=== PATIENT | female | born 1940 | race Caucasian/White ===

== ENCOUNTER 2016-12-27 13:51 | Inpatient (IN) | payer MEDICARE ==
[~2016-12-27] VITALS: Ht 165.1 cm; Wt 88.0 kg
[~2016-12-27 13:51] MED LIST: ATOR40TA59 PO; ERGO500027 PO; GLIM4TAB2 PO; HYDR-2758 PO; LISI1TAB3 PO; METF-620 PO
--- NOTE | 2016-12-27 15:20 | PHYS DOC ---
Past Medical History Past Medical History: Diabetes-Type II, High Cholesterol, Other Additional Past Medical Histor: OSTEOPOROSIS Past Surgical History: Appendectomy, Cholecystectomy Additional Information: QUIT SMOKING 3 MONTHS AGO Alcohol Use: None Drug Use: None Adult General Chief Complaint Chief Complaint: SHORTNESS OF BREATH HPI HPI Patient is a 76 year old female who presents with shortness of breath. She reports 2 week history of progressively worsening shortness of breath at rest, worsened with exertion. She reports chronic bilateral lower extremity edema not changed & no associated pain. She denies fevers/chills, cough, chest pain. No history of previous similar symptoms. Quit smoking 3 months ago after smoking for 40 years. She took lasix "a long long time ago" for unknown reasons , not currently prescribed. Denies history of cardiac or lung disease but she has diabetes. PCP is Dr. Reddy; she was seen in his clinic today & referred here for further evaluation. Review of Systems Review of Systems Constitutional: Denies fever or chills Eyes: Denies change in visual acuity HENT: Denies nasal congestion or sore throat Respiratory: Denies cough, reports shortness of breath Cardiovascular: Denies chest pain, reports edema GI: Denies abdominal pain, nausea, vomiting, bloody stools or diarrhea : Denies dysuria or hematuria Musculoskeletal: Denies back pain or joint pain Integument: Denies rash or skin lesions Neurologic: Denies headache, focal weakness or sensory changes Allergies Allergies Allergies Coded Allergies Type Severity Reaction Last Updated Verified No Known Drug Allergies 11/05/13 No Physical Exam Physical Exam Constitutional: Obese, no acute distress, non-toxic appearance. HENT: Normocephalic, atraumatic, bilateral external ears normal, oropharynx moist, nose normal. Eyes: PERRLA, EOMI, conjunctiva normal, no discharge. Neck: supple, no stridor. Cardiovascular: RRR, no murmurs, 3+ pitting edema to bilateral lower extremities. Lungs & Thorax: Diminished, LCTAB, no wheezing, no respiratory distress. Abdomen: soft, nontender, nondistended. Skin: Warm, dry, no erythema, no rash. Back: No tenderness. Extremities: No tenderness, 3+ pitting edema to bilateral lower extremities without calf tenderness Neurologic: Alert and oriented X 3, no focal deficits noted. Psychologic: Affect normal, judgement normal, mood normal. Current Patient Data Vital Signs Vital Signs Date Time Temp Pulse Resp B/P (MAP) Pulse Ox O2 Delivery O2 Flow Rate FiO2 12/27/16 15:38 86 18 92/55 (67) 97 Room Air 12/27/16 14:37 97.5 97.5 Lab Values Laboratory Tests Test 12/27/16 14:50 12/27/16 16:22 White Blood Count 9.0 x10^3/uL (4.0-11.0) Red Blood Count 4.20 x10^6/uL (3.50-5.40) Hemoglobin 10.8 g/dL (12.0-15.5) L Hematocrit 35.4 % (36.0-47.0) L Mean Corpuscular Volume 84 fL (79-100) Mean Corpuscular Hemoglobin 26 pg (25-35) Mean Corpuscular Hemoglobin Concent 31 g/dL (31-37) Red Cell Distribution Width 15.9 % (11.5-14.5) H Platelet Count 374 x10^3/uL (140-400) Neutrophils (%) (Auto) 81 % (31-73) H Lymphocytes (%) (Auto) 12 % (24-48) L Monocytes (%) (Auto) 5 % (0-9) Eosinophils (%) (Auto) 1 % (0-3) Basophils (%) (Auto) 1 % (0-3) Neutrophils # (Auto) 7.3 x10^3uL (1.8-7.7) Lymphocytes # (Auto) 1.1 x10^3/uL (1.0-4.8) Monocytes # (Auto) 0.4 x10^3/uL (0.0-1.1) Eosinophils # (Auto) 0.1 x10^3/uL (0.0-0.7) Basophils # (Auto) 0.1 x10^3/uL (0.0-0.2) Prothrombin Time 15.3 SEC (11.7-14.0) H Prothrombin Time INR 1.3 (0.8-1.1) H PTT 29 SEC (24-38) Sodium Level 141 mmol/L (136-145) Potassium Level 5.9 mmol/L (3.5-5.1) H Chloride Level 110 mmol/L (98-107) H Carbon Dioxide Level 21 mmol/L (21-32) Anion Gap 10 (6-14) Blood Urea Nitrogen 47 mg/dL (7-20) H Creatinine 2.3 mg/dL (0.6-1.0) H Estimated GFR (Cockcroft-Gault) 20.7 BUN/Creatinine Ratio 20 (6-20) Glucose Level 199 mg/dL (70-99) H Calcium Level 9.1 mg/dL (8.5-10.1) Total Bilirubin 0.6 mg/dL (0.2-1.0) Aspartate Amino Transferase (AST) 16 U/L (15-37) Alanine Aminotransferase (ALT) 20 U/L (14-59) Alkaline Phosphatase 100 U/L (46-116) Troponin I Quantitative 0.037 ng/mL (0.000-0.055) SK-Nwu-Y-Type Natriuretic Peptide 95437 pg/mL (0-124) H Total Protein 6.0 g/dL (6.4-8.2) L Albumin 3.1 g/dL (3.4-5.0) L Albumin/Globulin Ratio 1.1 (1.0-1.7) Urine Collection Type Void Urine Color Yellow Urine Clarity Cloudy Urine pH 5.0 Urine Specific [place] 1.020 Urine Protein 100 mg/dL (NEG-TRACE) Urine Glucose (UA) Negative mg/dL (NEG) Urine Ketones (Stick) Negative mg/dL (NEG) Urine Blood Small (NEG) Urine Nitrite Negative (NEG) Urine Bilirubin Small (NEG) Urine Urobilinogen Dipstick 0.2 mg/dL (0.2 mg/dL) Urine Leukocyte Esterase Large (NEG) Urine RBC Occ /HPF (0-2) Urine WBC >40 /HPF (0-4) Urine Squamous Epithelial Cells Few /LPF Urine Bacteria Many /HPF (0-FEW) Urine Hyaline Casts Few /HPF Urine Mucus Slight /LPF Laboratory Tests 12/27/16 14:50 Laboratory Tests 12/27/16 14:50 EKG EKG Interpreted by me: Normal sinus rhythm rate 90, no acute ST or T wave changes, normal intervals, no ectopy [] Radiology/Procedures Radiology/Procedures PROCEDURE: CHEST AP ONLY Indication: Shortness of breath. Time of exam 1527 hours. The heart is enlarged. The lungs are clear. No infiltrate or failure is detected. No effusion or pneumothorax is seen. Impression: Cardiomegaly. No acute feature is detected. DICTATED and SIGNED BY: MIGUEL HURT MD DATE: 12/27/16 1559 [] Course & Med Decision Making Course & Med Decision Making Pertinent Labs and Imaging studies reviewed. (See chart for details) The patient presents with dyspnea. Oxygen saturation stable here but obviously dyspneic with very short walk to the restroom in the department. She has peripheral edema, cardiomegaly, significantly elevated BNP. I did recommend admission to the hospital for further evaluation and treatment including cardiology consultation. The patient agreed with plan of care. Discussed with Dr. Reddy who agrees to admit to inpatient status. Cardiology consult to Dr. Severino, lasix 20 mg x 2 given here in ED, will also consult nephrology for acute renal failure & repeat BMP in AM due to elevated K. gave Rocephin for UTI. Urine culture sent. The patient is admitted in stable condition. [] Dragon Disclaimer Dragon Disclaimer This electronic medical record was generated, in whole or in part, using a voice recognition dictation system. Departure Departure Impression: Primary Impression: Congestive heart failure Additional Impressions: Acute renal failure Hyperkalemia Peripheral edema Urinary tract infection Referrals: JUAN JOSÉ REDDY MD (PCP) Problem Qualifiers KRYSTA CALABRESE MD Dec 27, 2016 15:20
[2016-12-27 15:44] LABS: BASO # 0.1 x10^3/uL (0.0-0.2); BASO % 1 % (0-3); EOS % 1 % (0-3); HEMATOCRIT 35.4 % (36.0-47.0); HEMOGLOBIN 10.8 g/dL (12.0-15.5); LYMPH # 1.1 x10^3/uL (1.0-4.8); LYMPH % 12 % (24-48); MEAN CORPUSCULAR HEMOGLOBIN 26 pg (25-35); MEAN CORPUSCULAR HGB CONC 31 g/dL (31-37); MEAN CORPUSCULAR VOLUME 84 fL (79-100); MONO % 5 % (0-9); NEUT % 81 % (31-73); PLATELET COUNT 374 x10^3/uL (140-400); RED CELL DISTRIBUTION WIDTH 15.9 % (11.5-14.5)
[2016-12-27 15:54] LABS: INR 1.3 (0.8-1.1); PROTHROMBIN TIME PATIENT 15.3 SEC (11.7-14.0)
--- NOTE | 2016-12-27 15:54 | RAD ---
Indication: Shortness of breath. Time of exam 1527 hours. The heart is enlarged. The lungs are clear. No infiltrate or failure is detected. No effusion or pneumothorax is seen. Impression: Cardiomegaly. No acute feature is detected.
[2016-12-27 16:00] LABS: CALCIUM 9.1 mg/dL (8.5-10.1); CREATININE 2.3 mg/dL (0.6-1.0); GFR 20.7; POTASSIUM 5.9 mmol/L (3.5-5.1)
[2016-12-27 16:06] LABS: ALBUMIN 3.1 g/dL (3.4-5.0); ALBUMIN/GLOBULIN RATIO 1.1 (1.0-1.7); TOTAL BILIRUBIN 0.6 mg/dL (0.2-1.0)
--- NOTE | 2016-12-27 16:16 | EKG ---
[facility] [address] [place] [address] Test Date: 2016-12-27 Test Time: 15:19:56 Pat Name: GONZALES BAIRD Department: Room: Gender: F [employer] Aircraft: : [id number] Requested By: KRYSTA CALABRESE Order Number: [id number] Reading MD: Barbi Centeno Measurements Intervals [place] Rate: 90 P: 56 RI: 174 QRS: 9 QRSD: 72 T: 144 QT: 342 QTc: 422 Interpretive Statements SINUS RHYTHM QRS(T) CONTOUR ABNORMALITY CANNOT RULE OUT ANTEROSEPTAL MYOCARDIAL DAMAGE T ABNORMALITY IN HIGH LATERAL LEADS Electronically Signed On 12-30-2016 13:48:29 CDT by Barbi Centeno
--- NOTE | 2016-12-27 16:30 | ACF ---
Admission Forms Criteria HEART FAILURE: COMMON COMPLICATIONS Clinical Indications for Inpatient Care (Place 'X' for any and all applicable criteria): Ongoing inpatient care may be indicated for heart failure with 1 or more of the following (1)(2)(3)(4)(5)(6)(7)(8): [ ]I. New-onset heart failure [ ]II. Acute cardiac ischemia causing or associated with failure [ ]III. Ongoing need for care for primary condition requiring frequent therapy adjustments because of changes in cardiac function (eg, drug dosage changes for drugs that are renally metabolized) [X ]IV. Complications of heart failure, including 1 or more of the following: [ ]a) Hemodynamic instability [ ]b) Pericardial effusion [ ]c) Symptomatic pleural effusion [ ]d) Hypoxemia [ ]e) Tachypnea [X ]f) Dyspnea [ ]g) Syncope [ ]h) Altered mental status [ ]i) Acute renal insufficiency that is severe (reduction of more than 50% in estimated glomerular filtration rate from baseline) or progressive reduction of more than 25% in estimated glomerular filtration rate from baseline, with creatinine continuing to rise) [ ]j) Debilitating anasarca (eg tissue breakdown with infection, inability to void due to edema) (E) [ ]k) Clinically significant metabolic abnormalities due to heart failure (eg, new-onset metabolic acidosis) Extended stay may be needed until ALL of the following are present (1)(3)(18)(41 )(55) [ ]a) Hemodynamic stability [ ]b) Stable and effective diuretic regimen established (or patient on stable dialysis regimen if in chronic renal failure) [ ]c) Volume status acceptable on oral medication [ ]d) Breathing comfortably at rest [ ]e) Saturation of arterial oxygen greater than 90% or at acceptable baseline [ ]f) Pulmonary edema absent or improved [ ]g) Peripheral or sacral edema absent or improved [ ]h) Renal function stable and manageable at a lower level of care [ ]i) Complications (eg, pleural effusion) resolved or manageable at a lower level of care [ ]g) Patient or caregiver has received written discharge instructions or educational material addressing activity level, diet, discharge medications, follow-up appointment, weight monitoring, and what to do if symptoms worsen.(25)(26) The original [facility] streamit content created by [facility] [employer] has been revised. The portions of the content which have been revised are identified through the use of italic text, and [facility] has neither reviewed nor approved the modified material.All other unmodified content is copyright [facility]. Please see references footnoted in the original [facility] edition 2015 Admission Criteria Met?: Yes RAVINDRA ROGERS Dec 27, 2016 16:30
[2016-12-27 16:38] LABS: BILIRUBIN,URINE SMALL (NEG); GLUCOSE,URINE NEGATIVE (NEG); NITRITE,URINE NEGATIVE (NEG); PROTEIN,URINE 100 mg/dL (NEG-TRACE); UROBILINOGEN,URINE 0.2 mg/dL (0.2 mg/dL)
[2016-12-27 16:55] LABS: RBC,URINE OCC /HPF (0-2); WBC,URINE >40 /HPF (0-4)
[2016-12-27 16:56] LABS: BACTERIA,URINE MANY /HPF (0-FEW); SQUAMOUS EPITHELIAL CELL,UR FEW /LPF
[2016-12-27] MEDS ORDERED: FUROSEMIDE 20 MG/2 ML VIAL. IVP ONE ×3 (17:15→18:45)
[2016-12-27] MEDS ORDERED: MORPHINE SULFATE 2 MG/ML DISP.SYRIN. IV PRN (17:30)
[2016-12-27] MEDS ORDERED: ONDANSETRON PF 4 MG/2 ML VIAL. IV PRN (17:30)
[2016-12-27] MEDS ORDERED: ACETAMINOPHEN 325 MG TABLET. PO PRN (17:30)
[2016-12-27] MEDS ORDERED: NITROGLYCERIN SUBLINGUAL 0.4 MG BOTTLE OF 25. SL PRN (17:30)
[2016-12-27 18:09] VITALS: BP 97/67
[2016-12-27] MEDS ORDERED: DIGOXIN IV 500 MCG/2 ML AMPUL. IV ONE (18:45)
[2016-12-27 19:15] VITALS: BP 90/52
[2016-12-27] MEDS: INSULIN ASPART 300 UNITS/3 ML INSULN.PEN SQ SCH (22:15)
[2016-12-27] MEDS: ATORVASTATIN CALCIUM 40 MG TABLET. PO SCH (22:26)
[2016-12-27] MEDS: ENOXAPARIN 30 MG/0.3 ML SYRINGE. SQ SCH (23:03)
[2016-12-27 23:20] VITALS: BP 94/52
[2016-12-28] VITALS (7 sets, daily range): BP systolic 93–115; BP diastolic 51–71
[2016-12-28 06:53] LABS: BASO # 0.1 x10^3/uL (0.0-0.2); BASO % 1 % (0-3); EOS % 3 % (0-3); HEMATOCRIT 33.9 % (36.0-47.0); HEMOGLOBIN 10.5 g/dL (12.0-15.5); LYMPH # 1.5 x10^3/uL (1.0-4.8); LYMPH % 19 % (24-48); MEAN CORPUSCULAR HEMOGLOBIN 26 pg (25-35); MEAN CORPUSCULAR HGB CONC 31 g/dL (31-37); MEAN CORPUSCULAR VOLUME 83 fL (79-100); MONO % 8 % (0-9); NEUT % 69 % (31-73); PLATELET COUNT 321 x10^3/uL (140-400); RED BLOOD COUNT 4.11 x10^6/uL (3.50-5.40); RED CELL DISTRIBUTION WIDTH 16.3 % (11.5-14.5); WHITE BLOOD COUNT 7.8 x10^3/uL (4.0-11.0)
[2016-12-28 07:15] LABS: CALCIUM 9.3 mg/dL (8.5-10.1); CREATININE 2.1 mg/dL (0.6-1.0)
[2016-12-28 07:16] LABS: POTASSIUM 5.3 mmol/L (3.5-5.1)
[2016-12-28] MEDS: INSULIN ASPART 300 UNITS/3 ML INSULN.PEN SQ SCH ×4 (07:30→21:40)
[2016-12-28] MEDS: FUROSEMIDE 40 MG/4 ML VIAL. IVP SCH ×2 (09:24→17:48)
--- NOTE | 2016-12-28 10:49 | PDOC2 ---
EZEQUIEL KELLY INSIGHTS ANALYST 12/28/16 1049: CARDIAC CONSULT DATE OF CONSULT Date of Consult DATE: 12/28/16 TIME: 1200 REASON FOR CONSULT Reason for Consult: new CHF REFERRING PHYSICIAN Referring Physician: Jason SOURCE Source: Chart review, Patient HISTORY OF PRESENT ILLNESS HISTORY OF PRESENT ILLNESS This is a pleasant 76 yo female admitted for complains of SOA. She went to her PCP yesterday and was noted with increasing SOA, weight gain and leg swelling. She was then advised to come to ED. Reports that in the last 4 weeks she has gained about 25 lbs. She does have orthopnea, PND. Reports no CP, or sensation of palpitations. No intermittent dizzy spells. Reports adequate hydration, no excessive Na or fluid intake. She actually has quit smoking for 3 months now. Her mobility has been limited due to ELIZALDE. PAST MEDICAL HISTORY Cardiovascular: HTN, Hyperlipidemia, Aortic stenosis (mild), Other (mild PAD) Pulmonary: COPD CENTRAL NERVOUS SYSTEM: Other (No pertinent history) GI: No pertinent hx Heme/Onc: No pertinent hx Hepatobiliary: No pertinent hx Psych: No pertinent hx Musculoskeletal: low back pain, Osteoarthritis, Other (lumbar stenosis) Rheumatologic: No pertinent hx ENT: No pertinent hx Renal/: No pertinent hx Endocrine: Diabetes (2), Osteoporosis Dermatology: No pertinent hx PAST SURGICAL HISTORY Past Surgical History: Appendectomy, Cholecystectomy, Tonsillectomy FAMILY HISTORY Family History: Diabetes (2) SOCIAL HISTORY Smoke: 1 pack per day (>40 yrs) ALCOHOL: none Drugs: None Lives: with Family CURRENT MEDICATIONS CURRENT MEDICATIONS Current Medications Medications (Trade) Dose Ordered Sig/Elida Route PRN Reason Start Time Stop Time Status Last Admin Dose Admin Furosemide (Lasix) 20 mg 1X ONCE IVP 12/27/16 17:15 12/27/16 17:16 DC 12/27/16 17:02 Ceftriaxone Sodium 50 ml @ 100 mls/hr 1X ONCE IV 12/27/16 17:30 12/27/16 17:59 DC 12/27/16 20:37 Digoxin (Lanoxin) 500 mcg 1X ONCE IV 12/27/16 18:45 12/27/16 18:46 DC 12/27/16 22:27 Furosemide (Lasix) 20 mg 1X ONCE IVP 12/27/16 18:45 12/27/16 18:47 DC 12/27/16 20:36 Furosemide (Lasix) 40 mg Q12H IVP 12/28/16 06:00 12/28/16 09:24 Atorvastatin Calcium (Lipitor) 40 mg HS PO 12/27/16 22:15 12/27/16 22:26 Enoxaparin Sodium (Lovenox 30mg Syringe) 30 mg Q24H SQ 12/27/16 22:30 12/27/16 23:03 ALLERGIES ALLERGIES: Coded Allergies: No Known Drug Allergies (Unverified , 11/05/13) ROS Review of System 14 point ROS evaluated with pertinent positives noted per HPI PHYSICAL EXAM General: Alert, Oriented X3, Cooperative, No acute distress HEENT: Atraumatic, Mucous membr. moist/pink Lungs: Other (faint basilar crackles) Heart: Regular rate (SR), Normal S1, Normal S2, Other (2/6 systolic murmur to LLS border) Abdomen: Soft, No tenderness Extremities: No cyanosis, Other (4+ bilateral LE pitting edema) Skin: No breakdown Neuro: Normal speech, Sensation intact Psych/Mental Status: Mental status NL, Mood NL MUSCULOSKELETAL: Osteoarthritic changes both hands VITALS VITALS Vital Signs Date Time Temp Pulse Resp B/P (MAP) Pulse Ox O2 Delivery O2 Flow Rate FiO2 12/28/16 10:33 97.2 116 20 108/67 (81) 95 Room Air 97.2 LABS Lab: Laboratory Tests Test 12/27/16 14:50 12/27/16 16:22 12/27/16 20:58 12/27/16 22:00 White Blood Count 9.0 x10^3/uL (4.0-11.0) Red Blood Count 4.20 x10^6/uL (3.50-5.40) Hemoglobin 10.8 g/dL (12.0-15.5) Hematocrit 35.4 % (36.0-47.0) Mean Corpuscular Volume 84 fL (79-100) Mean Corpuscular Hemoglobin 26 pg (25-35) Mean Corpuscular Hemoglobin Concent 31 g/dL (31-37) Red Cell Distribution Width 15.9 % (11.5-14.5) Platelet Count 374 x10^3/uL (140-400) Neutrophils (%) (Auto) 81 % (31-73) Lymphocytes (%) (Auto) 12 % (24-48) Monocytes (%) (Auto) 5 % (0-9) Eosinophils (%) (Auto) 1 % (0-3) Basophils (%) (Auto) 1 % (0-3) Neutrophils # (Auto) 7.3 x10^3uL (1.8-7.7) Lymphocytes # (Auto) 1.1 x10^3/uL (1.0-4.8) Monocytes # (Auto) 0.4 x10^3/uL (0.0-1.1) Eosinophils # (Auto) 0.1 x10^3/uL (0.0-0.7) Basophils # (Auto) 0.1 x10^3/uL (0.0-0.2) Prothrombin Time 15.3 SEC (11.7-14.0) Prothromb Time International Ratio 1.3 (0.8-1.1) Activated Partial Thromboplast Time 29 SEC (24-38) Sodium Level 141 mmol/L (136-145) Potassium Level 5.9 mmol/L (3.5-5.1) 5.1 mmol/L (3.5-5.1) Chloride Level 110 mmol/L (98-107) Carbon Dioxide Level 21 mmol/L (21-32) Anion Gap 10 (6-14) Blood Urea Nitrogen 47 mg/dL (7-20) Creatinine 2.3 mg/dL (0.6-1.0) Estimated GFR (Cockcroft-Gault) 20.7 BUN/Creatinine Ratio 20 (6-20) Glucose Level 199 mg/dL (70-99) Calcium Level 9.1 mg/dL (8.5-10.1) Total Bilirubin 0.6 mg/dL (0.2-1.0) Aspartate Amino Transf (AST/SGOT) 16 U/L (15-37) Alanine Aminotransferase (ALT/SGPT) 20 U/L (14-59) Alkaline Phosphatase 100 U/L (46-116) Troponin I Quantitative 0.037 ng/mL (0.000-0.055) GA-Nlv-N-Type Natriuretic Peptide 21029 pg/mL (0-124) Total Protein 6.0 g/dL (6.4-8.2) Albumin 3.1 g/dL (3.4-5.0) Albumin/Globulin Ratio 1.1 (1.0-1.7) Urine Collection Type Void Urine Color Yellow Urine Clarity Cloudy Urine pH 5.0 Urine Specific [place] 1.020 Urine Protein 100 mg/dL (NEG-TRACE) Urine Glucose (UA) Negative mg/dL (NEG) Urine Ketones (Stick) Negative mg/dL (NEG) Urine Blood Small (NEG) Urine Nitrite Negative (NEG) Urine Bilirubin Small (NEG) Urine Urobilinogen Dipstick 0.2 mg/dL (0.2 mg/dL) Urine Leukocyte Esterase Large (NEG) Urine RBC Occ /HPF (0-2) Urine WBC >40 /HPF (0-4) Urine Squamous Epithelial Cells Few /LPF Urine Bacteria Many /HPF (0-FEW) Urine Hyaline Casts Few /HPF Urine Mucus Slight /LPF Glucose (Fingerstick) 179 mg/dL (70-99) Test 12/27/16 23:20 12/28/16 06:00 Troponin I Quantitative 0.041 ng/mL (0.000-0.055) 0.052 ng/mL (0.000-0.055) White Blood Count 7.8 x10^3/uL (4.0-11.0) Red Blood Count 4.11 x10^6/uL (3.50-5.40) Hemoglobin 10.5 g/dL (12.0-15.5) Hematocrit 33.9 % (36.0-47.0) Mean Corpuscular Volume 83 fL (79-100) Mean Corpuscular Hemoglobin 26 pg (25-35) Mean Corpuscular Hemoglobin Concent 31 g/dL (31-37) Red Cell Distribution Width 16.3 % (11.5-14.5) Platelet Count 321 x10^3/uL (140-400) Neutrophils (%) (Auto) 69 % (31-73) Lymphocytes (%) (Auto) 19 % (24-48) Monocytes (%) (Auto) 8 % (0-9) Eosinophils (%) (Auto) 3 % (0-3) Basophils (%) (Auto) 1 % (0-3) Neutrophils # (Auto) 5.4 x10^3uL (1.8-7.7) Lymphocytes # (Auto) 1.5 x10^3/uL (1.0-4.8) Monocytes # (Auto) 0.6 x10^3/uL (0.0-1.1) Eosinophils # (Auto) 0.2 x10^3/uL (0.0-0.7) Basophils # (Auto) 0.1 x10^3/uL (0.0-0.2) Sodium Level 142 mmol/L (136-145) Potassium Level 5.3 mmol/L (3.5-5.1) Chloride Level 109 mmol/L (98-107) Carbon Dioxide Level 21 mmol/L (21-32) Anion Gap 12 (6-14) Blood Urea Nitrogen 47 mg/dL (7-20) Creatinine 2.1 mg/dL (0.6-1.0) Estimated GFR (Cockcroft-Gault) 23.0 Glucose Level 115 mg/dL (70-99) Calcium Level 9.3 mg/dL (8.5-10.1) ECHOCARDIOGRAM ECHOCARDIOGRAM <Conclusion> The left ventricle is normal size. The left ventricular systolic function is normal and the ejection fraction is within normal range. The Ejection Fraction is 50-55%. There is mild valvular aortic stenosis. Calculated aortic maximum pressure gradient of 15 mmHg and mean pressure gradient of 8 mmHg. Doppler and Color Flow revealed mild aortic regurgitation. Doppler and Color Flow revealed trace mitral regurgitation. Doppler and Color Flow revealed trace tricuspid regurgitation. The PA pressure was estimated at 24 mmHg. There is no evidence of significant pericardial effusion. DATE: 07/29/15 1256 ASSESSMENT/PLAN ASSESSMENT/PLAN 1. PAflutter: Noted overnight. Currently SR 2. Acute diastolic CHF 3. SEVERINO with hyperkalemia: Defer to nephrology 4. HTN: controlled 5. DM2/HLP 6. COPD with tobaccoism: Quit 3 months ago 7. Morbid obesity 8. UTI: per PCP Recommendations 1. Start on metoprolol 25 mg po bid. 2. Hold ACEi/ARB/metformin 3. ECASA 325 mg for stroke prevention. Will plan for outpt event monitor and note burden and will reeval for NOAC use. 4. Continue to diurese with lasix. 5. TTE pending. TSH to check. Problems: YAHAIRA SANTOS MD 12/28/162031: CARDIAC CONSULT ALLERGIES ALLERGIES: Coded Allergies: No Known Drug Allergies (Unverified , 11/05/13) ASSESSMENT/PLAN ASSESSMENT/PLAN Pt. seen and examined. Agree with above STARCH MANGLE TENDER note. 76 y.o woman presenting with acute decompensated systolic and diastolic HF. On exam she has 4+ pitting edema. Labs reviewed. Echo with severe LV dysfunction. Will plan for cardiac cath on sunday after stabilization. If she is at high risk for GWEN, could consider MPI first. Will follow along. High complexity patient due to acute systolic HF. Problems: EZEQUIEL KELLY APRN Dec 28, 2016 10:49 YAHAIRA SANTOS MD Dec 28, 2016 20:32
--- NOTE | 2016-12-28 12:32 | RAD ---
V/Q lung scan History: Shortness of breath for 2 weeks Comparison: No previous lung scan available. Chest x-ray dated December 27, 2016. Technique: After inhalation of 18.8 mCi of xenon 133, anterior and posterior images of the lung hall were performed in the single breath, equilibrium and washout phases. After IV infusion of 6.0 mCi of technetium 99m MAA, multiplanar images of both lung hall were performed. Findings: No ventilatory defect is seen. No significant retention of radiotracer activity is seen. Normal physiologic perfusion is seen. No segmental perfusion defects are seen. IMPRESSION: Normal V/Q lung scan.
--- NOTE | 2016-12-28 12:39 | PDOC2 ---
CONSULT Date of Consult Date of Consult DATE: 12/28/16 TIME: 12:34 Reason for Consult Reason for Consult: RENAL FAILURE AND HIGH K Referring Physician Referring Physician: BRITTON Identification/Chief Complaint Chief Complaint SOB Problems: Source Source: Chart review, Patient History of Present Illness Reason for Visit: THIS IS A 76 YR OLD ADMITTED WITH SOB AND LE EDEMA. XRAY SHOWED CM. LABS SHOWED A HIGH BNP AND A K OF 5.9. HER CR IS 2.3. SHE IS UNAWARE OF ANY CKD. SHE DENIED ANY HX OF KIDNEY OR BLADDER SURGERIES HEMATURIA DYSURIA OR FREQUENCY. NO NSAID ABUSE HX NOTED. SHE HAS A LONG HX OF DM II AND HTN Past Medical History Cardiovascular: HTN, Hyperlipidemia, Aortic stenosis (mild), Other (mild PAD) Pulmonary: COPD CENTRAL NERVOUS SYSTEM: Other (No pertinent history) GI: No pertinent hx Heme/Onc: No pertinent hx Hepatobiliary: No pertinent hx Psych: No pertinent hx Musculoskeletal: low back pain, Osteoarthritis, Other (lumbar stenosis) Rheumatologic: No pertinent hx ENT: No pertinent hx Renal/: No pertinent hx Endocrine: Diabetes (2), Osteoporosis Dermatology: No pertinent hx Past Surgical History Past Surgical History: Appendectomy, Cholecystectomy, Tonsillectomy Family History Family History: Diabetes (2) Social History 1 pack per day (>40 yrs) ALCOHOL: none Drugs: None Lives: with Family Current Problem List Problem List Problems Medical Problems: (1) Acute renal failure Status: Acute (2) Congestive heart failure Status: Acute (3) Hyperkalemia Status: Acute (4) Peripheral edema Status: Acute (5) Urinary tract infection Status: Acute Current Medications Current Medications Current Medications Furosemide (Lasix) 20 mg 1X ONCE IVP Last administered on 12/27/16 17:02; Start 12/27/16 at 17:15; Stop 12/27/16 at 17:16; Status DC Ceftriaxone Sodium 50 ml @ 100 mls/hr 1X ONCE IV Last administered on 20:37; Start 12/27/16 at 17:30; Stop 12/27/16 at 17:59; Status DC Ondansetron HCl (Zofran) 4 mg PRN Q8HRS PRN IV NAUSEA/VOMITING; Start 12/27/16 at 17:30; Stop 12/28/16 at 17:29 Morphine Sulfate 2 mg PRN Q2HR PRN IV PAIN; Start 12/27/16 at 17:30; Stop 12/28 at 17:29 Acetaminophen (Tylenol) 650 mg PRN Q4HRS PRN PO FEVER; Start 12/27/16 at 17:30 ; Stop 12/28/16 at 17:29 Nitroglycerin (Nitrostat) 0.4 mg PRN Q5MIN PRN SL CHEST PAIN; Start 12/27/16 at 17:30; Stop 12/28/16 at 17:29 Furosemide (Lasix) 20 mg 1X ONCE IVP ; Start 12/27/16 at 17:30; Stop 12/27/16 at 17:31; Status DC Digoxin (Lanoxin) 500 mcg 1X ONCE IV Last administered on 12/27/16 22:27; Start 12/27/16 at 18:45; Stop 12/27/16 at 18:46; Status DC Furosemide (Lasix) 20 mg 1X ONCE IVP Last administered on 12/27/16 20:36; Start 12/27/16 at 18:45; Stop 12/27/16 at 18:47; Status DC Furosemide (Lasix) 40 mg Q12H IVP Last administered on 12/28/16 09:24; Start 12/28/16 at 06:00 Atorvastatin Calcium (Lipitor) 40 mg HS PO Last administered on 12/27/16 22:26 ; Start 12/27/16 at 22:15 Insulin Aspart (NovoLOG) 0-12 UNITS QIDACHS SQ ; Start 12/27/16 at 22:15 Enoxaparin Sodium (Lovenox 30mg Syringe) 30 mg Q24H SQ Last administered on 23:03; Start 12/27/16 at 22:30 Metoprolol Tartrate (Lopressor) 25 mg BID PO ; Start 12/28/16 at 11:30 Aspirin (Ecotrin) 325 mg DAILYWBKFT PO ; Start 12/28/16 at 13:00 Active Scripts Active Hydrocodone-Apap 5-325 (Hydrocodone Bit/Acetaminophen) 1 Each Tablet 1 Tab PO PRN Q6HRS PRN Reported Vitamin D2 (Ergocalciferol (Vitamin D2)) 50,000 Unit Capsule 50,000 Unit PO WEEKLY Metformin Hcl 1,000 Mg Tablet 1,000 Mg PO DAILY Atorvastatin Calcium 40 Mg Tablet 40 Mg PO DAILY Glimepiride 4 Mg Tablet 8 Mg PO DAILY Lisinopril-Hctz 10-12.5 Mg Tab (Lisinopril/Hydrochlorothiazide) 1 Each Tablet 1 Each PO DAILY Hydrocodone-Apap 5-325 (Hydrocodone Bit/Acetaminophen) 1 Each Tablet 1 Each PO Q4HRS PRN Allergies Allergies: Coded Allergies: No Known Drug Allergies (Unverified , 11/05/13) ROS General: YES: Fatigue, Malaise PSYCHOLOGICAL ROS: YES: Anxiety HEENT: YES: Heacaches Respiratory: YES: Orthopnea, Shortness of breath Cardiovascular: yes Orthopnea, yes Edema Gastrointestinal: Yes Constipation Genitourinary: YES Other (NOCTURIA) Musculoskeletal: Yes Muscular Weakness Neurological: Yes Weakness Skin: Yes Dry Skin Physical Exam General: Alert, Oriented X3, Cooperative, No acute distress HEENT: Atraumatic, PERRLA Lungs: Other (DECREASED SOUNDS AT THE BASES) Heart: Regular rate Abdomen: Normal bowel sounds Extremities: No clubbing, Other (2+ EDEMA) MUSCULOSKELETAL: No deformity, No swelling Vitals VITALS Vital Signs Date Time Temp Pulse Resp B/P (MAP) Pulse Ox O2 Delivery O2 Flow Rate FiO2 12/28/16 10:33 97.2 116 20 108/67 (81) 95 Room Air 97.2 Labs Labs Laboratory Tests Test 12/27/16 14:50 12/27/16 16:22 12/27/16 20:58 12/27/16 22:00 White Blood Count 9.0 x10^3/uL (4.0-11.0) Red Blood Count 4.20 x10^6/uL (3.50-5.40) Hemoglobin 10.8 g/dL (12.0-15.5) Hematocrit 35.4 % (36.0-47.0) Mean Corpuscular Volume 84 fL (79-100) Mean Corpuscular Hemoglobin 26 pg (25-35) Mean Corpuscular Hemoglobin Concent 31 g/dL (31-37) Red Cell Distribution Width 15.9 % (11.5-14.5) Platelet Count 374 x10^3/uL (140-400) Neutrophils (%) (Auto) 81 % (31-73) Lymphocytes (%) (Auto) 12 % (24-48) Monocytes (%) (Auto) 5 % (0-9) Eosinophils (%) (Auto) 1 % (0-3) Basophils (%) (Auto) 1 % (0-3) Neutrophils # (Auto) 7.3 x10^3uL (1.8-7.7) Lymphocytes # (Auto) 1.1 x10^3/uL (1.0-4.8) Monocytes # (Auto) 0.4 x10^3/uL (0.0-1.1) Eosinophils # (Auto) 0.1 x10^3/uL (0.0-0.7) Basophils # (Auto) 0.1 x10^3/uL (0.0-0.2) Prothrombin Time 15.3 SEC (11.7-14.0) Prothromb Time International Ratio 1.3 (0.8-1.1) Activated Partial Thromboplast Time 29 SEC (24-38) Sodium Level 141 mmol/L (136-145) Potassium Level 5.9 mmol/L (3.5-5.1) 5.1 mmol/L (3.5-5.1) Chloride Level 110 mmol/L (98-107) Carbon Dioxide Level 21 mmol/L (21-32) Anion Gap 10 (6-14) Blood Urea Nitrogen 47 mg/dL (7-20) Creatinine 2.3 mg/dL (0.6-1.0) Estimated GFR (Cockcroft-Gault) 20.7 BUN/Creatinine Ratio 20 (6-20) Glucose Level 199 mg/dL (70-99) Calcium Level 9.1 mg/dL (8.5-10.1) Total Bilirubin 0.6 mg/dL (0.2-1.0) Aspartate Amino Transf (AST/SGOT) 16 U/L (15-37) Alanine Aminotransferase (ALT/SGPT) 20 U/L (14-59) Alkaline Phosphatase 100 U/L (46-116) Troponin I Quantitative 0.037 ng/mL (0.000-0.055) GS-Ney-F-Type Natriuretic Peptide 39677 pg/mL (0-124) Total Protein 6.0 g/dL (6.4-8.2) Albumin 3.1 g/dL (3.4-5.0) Albumin/Globulin Ratio 1.1 (1.0-1.7) Urine Collection Type Void Urine Color Yellow Urine Clarity Cloudy Urine pH 5.0 Urine Specific Goodrich 1.020 Urine Protein 100 mg/dL (NEG-TRACE) Urine Glucose (UA) Negative mg/dL (NEG) Urine Ketones (Stick) Negative mg/dL (NEG) Urine Blood Small (NEG) Urine Nitrite Negative (NEG) Urine Bilirubin Small (NEG) Urine Urobilinogen Dipstick 0.2 mg/dL (0.2 mg/dL) Urine Leukocyte Esterase Large (NEG) Urine RBC Occ /HPF (0-2) Urine WBC >40 /HPF (0-4) Urine Squamous Epithelial Cells Few /LPF Urine Bacteria Many /HPF (0-FEW) Urine Hyaline Casts Few /HPF Urine Mucus Slight /LPF Glucose (Fingerstick) 179 mg/dL (70-99) Test 12/27/16 23:20 12/28/16 06:00 Troponin I Quantitative 0.041 ng/mL (0.000-0.055) 0.052 ng/mL (0.000-0.055) White Blood Count 7.8 x10^3/uL (4.0-11.0) Red Blood Count 4.11 x10^6/uL (3.50-5.40) Hemoglobin 10.5 g/dL (12.0-15.5) Hematocrit 33.9 % (36.0-47.0) Mean Corpuscular Volume 83 fL (79-100) Mean Corpuscular Hemoglobin 26 pg (25-35) Mean Corpuscular Hemoglobin Concent 31 g/dL (31-37) Red Cell Distribution Width 16.3 % (11.5-14.5) Platelet Count 321 x10^3/uL (140-400) Neutrophils (%) (Auto) 69 % (31-73) Lymphocytes (%) (Auto) 19 % (24-48) Monocytes (%) (Auto) 8 % (0-9) Eosinophils (%) (Auto) 3 % (0-3) Basophils (%) (Auto) 1 % (0-3) Neutrophils # (Auto) 5.4 x10^3uL (1.8-7.7) Lymphocytes # (Auto) 1.5 x10^3/uL (1.0-4.8) Monocytes # (Auto) 0.6 x10^3/uL (0.0-1.1) Eosinophils # (Auto) 0.2 x10^3/uL (0.0-0.7) Basophils # (Auto) 0.1 x10^3/uL (0.0-0.2) Sodium Level 142 mmol/L (136-145) Potassium Level 5.3 mmol/L (3.5-5.1) Chloride Level 109 mmol/L (98-107) Carbon Dioxide Level 21 mmol/L (21-32) Anion Gap 12 (6-14) Blood Urea Nitrogen 47 mg/dL (7-20) Creatinine 2.1 mg/dL (0.6-1.0) Estimated GFR (Cockcroft-Gault) 23.0 Glucose Level 115 mg/dL (70-99) Calcium Level 9.3 mg/dL (8.5-10.1) Laboratory Tests Test 12/27/16 14:50 12/27/16 16:22 12/27/16 20:58 12/27/16 22:00 White Blood Count 9.0 x10^3/uL (4.0-11.0) Red Blood Count 4.20 x10^6/uL (3.50-5.40) Hemoglobin 10.8 g/dL (12.0-15.5) Hematocrit 35.4 % (36.0-47.0) Mean Corpuscular Volume 84 fL (79-100) Mean Corpuscular Hemoglobin 26 pg (25-35) Mean Corpuscular Hemoglobin Concent 31 g/dL (31-37) Red Cell Distribution Width 15.9 % (11.5-14.5) Platelet Count 374 x10^3/uL (140-400) Neutrophils (%) (Auto) 81 % (31-73) Lymphocytes (%) (Auto) 12 % (24-48) Monocytes (%) (Auto) 5 % (0-9) Eosinophils (%) (Auto) 1 % (0-3) Basophils (%) (Auto) 1 % (0-3) Neutrophils # (Auto) 7.3 x10^3uL (1.8-7.7) Lymphocytes # (Auto) 1.1 x10^3/uL (1.0-4.8) Monocytes # (Auto) 0.4 x10^3/uL (0.0-1.1) Eosinophils # (Auto) 0.1 x10^3/uL (0.0-0.7) Basophils # (Auto) 0.1 x10^3/uL (0.0-0.2) Prothrombin Time 15.3 SEC (11.7-14.0) Prothromb Time International Ratio 1.3 (0.8-1.1) Activated Partial Thromboplast Time 29 SEC (24-38) Sodium Level 141 mmol/L (136-145) Potassium Level 5.9 mmol/L (3.5-5.1) 5.1 mmol/L (3.5-5.1) Chloride Level 110 mmol/L (98-107) Carbon Dioxide Level 21 mmol/L (21-32) Anion Gap 10 (6-14) Blood Urea Nitrogen 47 mg/dL (7-20) Creatinine 2.3 mg/dL (0.6-1.0) Estimated GFR (Cockcroft-Gault) 20.7 BUN/Creatinine Ratio 20 (6-20) Glucose Level 199 mg/dL (70-99) Calcium Level 9.1 mg/dL (8.5-10.1) Total Bilirubin 0.6 mg/dL (0.2-1.0) Aspartate Amino Transf (AST/SGOT) 16 U/L (15-37) Alanine Aminotransferase (ALT/SGPT) 20 U/L (14-59) Alkaline Phosphatase 100 U/L (46-116) Troponin I Quantitative 0.037 ng/mL (0.000-0.055) NW-Bpl-O-Type Natriuretic Peptide 35886 pg/mL (0-124) Total Protein 6.0 g/dL (6.4-8.2) Albumin 3.1 g/dL (3.4-5.0) Albumin/Globulin Ratio 1.1 (1.0-1.7) Urine Collection Type Void Urine Color Yellow Urine Clarity Cloudy Urine pH 5.0 Urine Specific Goodrich 1.020 Urine Protein 100 mg/dL (NEG-TRACE) Urine Glucose (UA) Negative mg/dL (NEG) Urine Ketones (Stick) Negative mg/dL (NEG) Urine Blood Small (NEG) Urine Nitrite Negative (NEG) Urine Bilirubin Small (NEG) Urine Urobilinogen Dipstick 0.2 mg/dL (0.2 mg/dL) Urine Leukocyte Esterase Large (NEG) Urine RBC Occ /HPF (0-2) Urine WBC >40 /HPF (0-4) Urine Squamous Epithelial Cells Few /LPF Urine Bacteria Many /HPF (0-FEW) Urine Hyaline Casts Few /HPF Urine Mucus Slight /LPF Glucose (Fingerstick) 179 mg/dL (70-99) Test 12/27/16 23:20 12/28/16 06:00 Troponin I Quantitative 0.041 ng/mL (0.000-0.055) 0.052 ng/mL (0.000-0.055) White Blood Count 7.8 x10^3/uL (4.0-11.0) Red Blood Count 4.11 x10^6/uL (3.50-5.40) Hemoglobin 10.5 g/dL (12.0-15.5) Hematocrit 33.9 % (36.0-47.0) Mean Corpuscular Volume 83 fL (79-100) Mean Corpuscular Hemoglobin 26 pg (25-35) Mean Corpuscular Hemoglobin Concent 31 g/dL (31-37) Red Cell Distribution Width 16.3 % (11.5-14.5) Platelet Count 321 x10^3/uL (140-400) Neutrophils (%) (Auto) 69 % (31-73) Lymphocytes (%) (Auto) 19 % (24-48) Monocytes (%) (Auto) 8 % (0-9) Eosinophils (%) (Auto) 3 % (0-3) Basophils (%) (Auto) 1 % (0-3) Neutrophils # (Auto) 5.4 x10^3uL (1.8-7.7) Lymphocytes # (Auto) 1.5 x10^3/uL (1.0-4.8) Monocytes # (Auto) 0.6 x10^3/uL (0.0-1.1) Eosinophils # (Auto) 0.2 x10^3/uL (0.0-0.7) Basophils # (Auto) 0.1 x10^3/uL (0.0-0.2) Sodium Level 142 mmol/L (136-145) Potassium Level 5.3 mmol/L (3.5-5.1) Chloride Level 109 mmol/L (98-107) Carbon Dioxide Level 21 mmol/L (21-32) Anion Gap 12 (6-14) Blood Urea Nitrogen 47 mg/dL (7-20) Creatinine 2.1 mg/dL (0.6-1.0) Estimated GFR (Cockcroft-Gault) 23.0 Glucose Level 115 mg/dL (70-99) Calcium Level 9.3 mg/dL (8.5-10.1) Assessment/Plan Assessment/Plan IMP CHF-ACUTE EDEMA/HYPERVOLEMIA HYPERKALEMIA SUSPECT CKD STAGE 3 DM II HTN PLAN IV LASIX RENAL SONOGRAM CARDIOLOGY EVAL AND TX AGREE WITH HOLDING CHANDRAKANT AND HCTZ FOR NOW ALSO AGREE WITH HOLDING METFORMIN CHECK 24 HR URINE KEVEN COE MD Dec 28, 2016 12:39
--- NOTE | 2016-12-28 14:48 | RAD ---
Indication: Renal failure. The right kidney measures 10.7 x 5.1 x 4.4 cm and the left kidney measures 10.0 x 4.1 x 4.7 cm. There may be mild cortical thinning. No calculi are seen. No hydronephrosis is detected. The bladder is unremarkable. Impression: Mild cortical thinning. The study is otherwise unremarkable.
--- NOTE | 2016-12-28 16:06 | CARD ---
APPROVED REPORT EXAM: Two-dimensional and M-mode echocardiogram with Doppler and color Doppler. Other Information Quality : Average Rhythm : Tachycardia INDICATION Congestive Heart Failure 2D DIMENSIONS RVDd4.3 (2.9-3.5cm)Left Atrium(2D)4.7 (1.6-4.0cm) IVSd0.9 (0.7-1.1cm)Aortic Root(2D)2.9 (2.0-3.7cm) LVDd5.1 (3.9-5.9cm)LVOT Diameter2.1 (1.8-2.4cm) PWd0.9 (0.7-1.1cm)LVDs4.4 (2.5-4.0cm) FS (%) 13.7 %SV35.5 ml LVEF(%)29.1 (>50%) Aortic Valve AoV Peak Samir.154.0cm/sAoV VTI28.4cm AO Peak GR.9.5mmHgLVOT Peak Samir.121.3cm/s LVOT VTI 19.42cmAO Mean GR.6mmHg CHANDNI (VMAX)2.52vz4GLN (VTI)2.28cm2 AI P 1/2 Kyww175pf Mitral Valve MV E Fmpszqvp07.0cm/sMV DECEL QBCE312mm MV A Zpumfgzt32.0cm/sMV HYR28oi E/A Ratio1.9MVA (PHT)4.35cm2 TDI E/Lateral E'7.5 Pulmonary Valve PV Peak Vnfgremo07.0cm/sPV Peak Grad.3mmHg RVOT VTI12.3cm Tricuspid Valve TR P. Pglrlflc846rk/sRAP NAACGFPN29gdTp TR Peak Gr.21klYiDRPG10woDc Pulmonary Vein S1 Bavbhrcj99.4cm/sD2 Wiblxrbx28.1cm/s LEFT VENTRICLE The left ventricle is normal size. There is normal left ventricular wall thickness. Left ventricle sy stolic function is moderately impaired. The Ejection Fraction is 25-30%. Severe global hypokinesis. T issue Doppler imaging reveals moderate left ventricular diastolic dysfunction. There is no ventricula r septal defect visualized. RIGHT VENTRICLE The right ventricle is moderately dilated. RF Systolic function is mildly reduced. ATRIA The left atrium is mildly dilated. The right atrium is mildly dilated. The interatrial septum is inta ct with no evidence for an atrial septal defect or patent foramen ovale as noted on 2-D or Doppler im aging. AORTIC VALVE The aortic valve is moderately calcified. The aortic valve is trileaflet. Doppler and Color Flow reve aled mild aortic regurgitation. There is no significant aortic valvular stenosis. MITRAL VALVE Mitral annular calcification is mild. There is no mitral valve stenosis. Doppler and Color Flow revea led mild mitral regurgitation. TRICUSPID VALVE The tricuspid valve is normal in structure. Doppler and Color Flow revealed moderate tricuspid regurg itation. The PA pressure was estimated at 60 mmHg. There is no tricuspid valve stenosis. PULMONIC VALVE The pulmonic valve is not well visualized. Doppler and Color Flow revealed trace pulmonic valvular re gurgitation. There is no pulmonic valvular stenosis. GREAT VESSELS The aortic root is normal in size. Pulmonary venous flow (Doppler) suggestive of diastolic dysfunctio n. The IVC is dilated and collapses <50% with inspiration. PERICARDIAL EFFUSION There is no evidence of significant pericardial effusion. Critical Notification Date: 12/28/2016 Time: 15:07 Other Discipline : Jarrett Henry APRN Critical Value: Yes <Conclusion> Left ventricle systolic function is moderately impaired. The Ejection Fraction is 25-30%. Severe global hypokinesis. Tissue Doppler imaging reveals moderate left ventricular diastolic dysfunction. The right ventricle is moderately dilated. Doppler and Color Flow revealed moderate tricuspid regurgitation. The PA pressure was estimated at 6 0 mmHg.
[2016-12-28] MEDS: ASPIRIN ENTERIC COATED 325 MG TABLET.DR. PO SCH (16:34)
[2016-12-28] MEDS: METOPROLOL TART IMMED RELEASE 25 MG TABLET. PO SCH (16:34)
--- NOTE | 2016-12-28 18:02 | PDOC1 ---
History and Physical Date of Admission Date of Admission DATE: 12/27/16 TIME: 1400 hrs. Identification/Chief Complaint Chief Complaint Shortness of breath Problems: Source Source: Patient History of Present Illness History of Present Illness Patient was seen with a 3 week history of increasing shortness of breath. Patient was initially treated for exacerbation of COPD but had little improvement. Patient followed up and was noted to have increasing shortness of breath decreased ability to walk and increasing leg swelling. Reviewing patient' s weight over the last 2 months she has gained 35 pounds and 10 pounds in the last 3 weeks patient is noted to have pitting edema to lower extremities. Due to these findings on office evaluation she was recommended to proceed to the emergency room for further evaluation. During ER evaluation patient was found to have increasing BUN/creatinine high BNP and cardiomegaly on chest x-ray without overt pulmonary edema. Due to these findings patient was admitted for diastolic congestive heart failure as well as acute on chronic renal failure nephrology and cardiology will both be consult. Past Medical History Past Medical History Hypertension Diabetes type 2 Peripheral vascular disease High cholesterol Gout Osteoarthritis Cardiovascular: HTN, Hyperlipidemia, Aortic stenosis (mild), Other (mild PAD) Pulmonary: COPD CENTRAL NERVOUS SYSTEM: Other (No pertinent history) GI: No pertinent hx Heme/Onc: No pertinent hx Hepatobiliary: No pertinent hx Psych: No pertinent hx Musculoskeletal: low back pain, Osteoarthritis, Other (lumbar stenosis) Rheumatologic: No pertinent hx ENT: No pertinent hx Renal/: No pertinent hx Endocrine: Diabetes (2), Osteoporosis Dermatology: No pertinent hx Past Surgical History Past Surgical History: Appendectomy, Cholecystectomy, Tonsillectomy Family History Family History Mother with complications of lung cancer. Patient has a sister with diabetes. Family History: Diabetes (2) Social History Smoke: Quit (>40 yrs patient quit 3 months ago.) ALCOHOL: none Drugs: None Current Problem List Problem List Problems Medical Problems: (1) Acute renal failure Status: Acute (2) Congestive heart failure Status: Acute (3) Hyperkalemia Status: Acute (4) Peripheral edema Status: Acute (5) Urinary tract infection Status: Acute Problems: Current Medications Current Medications Current Medications Furosemide (Lasix) 20 mg 1X ONCE IVP Last administered on 12/27/16t 17:02; Start 12/27/16 at 17:15; Stop 12/27/16 at 17:16; Status DC Ceftriaxone Sodium 50 ml @ 100 mls/hr 1X ONCE IV Last administered on 20:37; Start 12/27/16 at 17:30; Stop 12/27/16 at 17:59; Status DC Ondansetron HCl (Zofran) 4 mg PRN Q8HRS PRN IV NAUSEA/VOMITING; Start 12/27/16 at 17:30; Stop 12/28/16 at 17:29; Status DC Morphine Sulfate 2 mg PRN Q2HR PRN IV PAIN; Start 12/27/16 at 17:30; Stop 12/28 at 17:29; Status DC Acetaminophen (Tylenol) 650 mg PRN Q4HRS PRN PO FEVER; Start 12/27/16 at 17:30 ; Stop 12/28/16 at 17:29; Status DC Nitroglycerin (Nitrostat) 0.4 mg PRN Q5MIN PRN SL CHEST PAIN; Start 12/27/16 at 17:30; Stop 12/28/16 at 17:29; Status DC Furosemide (Lasix) 20 mg 1X ONCE IVP ; Start 12/27/16 at 17:30; Stop 12/27/16 at 17:31; Status DC Digoxin (Lanoxin) 500 mcg 1X ONCE IV Last administered on 12/27/16 22:27; Start 12/27/16 at 18:45; Stop 12/27/16 at 18:46; Status DC Furosemide (Lasix) 20 mg 1X ONCE IVP Last administered on 12/27/16 20:36; Start 12/27/16 at 18:45; Stop 12/27/16 at 18:47; Status DC Furosemide (Lasix) 40 mg Q12H IVP Last administered on 12/28/16 09:24; Start 12/28/16 at 06:00 Atorvastatin Calcium (Lipitor) 40 mg HS PO Last administered on 12/27/16 22:26 ; Start 12/27/16 at 22:15 Insulin Aspart (NovoLOG) 0-12 UNITS QIDACHS SQ ; Start 12/27/16 at 22:15 Enoxaparin Sodium (Lovenox 30mg Syringe) 30 mg Q24H SQ Last administered on 23:03; Start 12/27/16 at 22:30 Metoprolol Tartrate (Lopressor) 25 mg BID PO Last administered on 12/28/16 16: 34; Start 12/28/16 at 11:30 Aspirin (Ecotrin) 325 mg DAILYWBKFT PO Last administered on 12/28/16 16:34; Start 12/28/16 at 13:00 Active Scripts Active Hydrocodone-Apap 5-325 (Hydrocodone Bit/Acetaminophen) 1 Each Tablet 1 Tab PO PRN Q6HRS PRN Reported Vitamin D2 (Ergocalciferol (Vitamin D2)) 50,000 Unit Capsule 50,000 Unit PO WEEKLY Metformin Hcl 1,000 Mg Tablet 1,000 Mg PO DAILY Atorvastatin Calcium 40 Mg Tablet 40 Mg PO DAILY Glimepiride 4 Mg Tablet 8 Mg PO DAILY Lisinopril-Hctz 10-12.5 Mg Tab (Lisinopril/Hydrochlorothiazide) 1 Each Tablet 1 Each PO DAILY Hydrocodone-Apap 5-325 (Hydrocodone Bit/Acetaminophen) 1 Each Tablet 1 Each PO Q4HRS PRN Allergies Allergies: Coded Allergies: No Known Drug Allergies (Unverified , 11/05/13) ROS PSYCHOLOGICAL ROS: No: Anxiety, Behavioral Disorder, Concentration difficultie , Decreased libido, Depression, Disorientation, Hallucinations, Hostility, Irritablity, Memory difficulties, Mood Swings, Obsessive thoughts, Physical abuse, Sexual abuse, Sleep disturbances, Suicidal ideation, Other HEENT: No: Heacaches, Visual Changes, Hearing change, Nasal congestion, Nasal discharge, Oral lesions, Sinus pain, Sore Throat, Epistaxis, Sneezing, Snoring, Tinnitus, Vertigo, Vocal changes, Other ALLERGY AND IMMUNOLOGY: No: Hives, Insect Bite Sensitivity, Itchy/Watery Eyes, Nasal Congestion, Post Nasal Drip, Seasonal Allergies, Other Respiratory: YES: Shortness of breath Cardiovascular: yes Edema Neurological: No Behavorial Changes, No Bowel/Bladder ControlChng, No Confusion , No Dizziness, No Gait Disturbance, No Headaches, No Impaired Coord/balance, No Memory Loss, No Numbness/Tingling, No Seizures, No Speech Problems, No Tremors, No Visual Changes, No Weakness, No Other Physical Exam General: Alert, Oriented X3 HEENT: Atraumatic Lungs: Clear to auscultation Heart: RRR, no murmurs Abdomen: Normal bowel sounds Extremities: Other (plus pitting edema) Neuro: Other (no unilateral findings) Psych/Mental Status: Mental status NL Vitals Vitals Vital Signs Date Time Temp Pulse Resp B/P (MAP) Pulse Ox O2 Delivery O2 Flow Rate FiO2 12/28/16 16:34 87 115/64 12/28/16 14:39 97.9 19 96 Room Air 97.9 Labs Labs Laboratory Tests Test 12/27/16 14:50 12/27/16 16:22 12/27/16 20:58 12/27/16 22:00 White Blood Count 9.0 x10^3/uL (4.0-11.0) Red Blood Count 4.20 x10^6/uL (3.50-5.40) Hemoglobin 10.8 g/dL (12.0-15.5) Hematocrit 35.4 % (36.0-47.0) Mean Corpuscular Volume 84 fL (79-100) Mean Corpuscular Hemoglobin 26 pg (25-35) Mean Corpuscular Hemoglobin Concent 31 g/dL (31-37) Red Cell Distribution Width 15.9 % (11.5-14.5) Platelet Count 374 x10^3/uL (140-400) Neutrophils (%) (Auto) 81 % (31-73) Lymphocytes (%) (Auto) 12 % (24-48) Monocytes (%) (Auto) 5 % (0-9) Eosinophils (%) (Auto) 1 % (0-3) Basophils (%) (Auto) 1 % (0-3) Neutrophils # (Auto) 7.3 x10^3uL (1.8-7.7) Lymphocytes # (Auto) 1.1 x10^3/uL (1.0-4.8) Monocytes # (Auto) 0.4 x10^3/uL (0.0-1.1) Eosinophils # (Auto) 0.1 x10^3/uL (0.0-0.7) Basophils # (Auto) 0.1 x10^3/uL (0.0-0.2) Prothrombin Time 15.3 SEC (11.7-14.0) Prothromb Time International Ratio 1.3 (0.8-1.1) Activated Partial Thromboplast Time 29 SEC (24-38) Sodium Level 141 mmol/L (136-145) Potassium Level 5.9 mmol/L (3.5-5.1) 5.1 mmol/L (3.5-5.1) Chloride Level 110 mmol/L (98-107) Carbon Dioxide Level 21 mmol/L (21-32) Anion Gap 10 (6-14) Blood Urea Nitrogen 47 mg/dL (7-20) Creatinine 2.3 mg/dL (0.6-1.0) Estimated GFR (Cockcroft-Gault) 20.7 BUN/Creatinine Ratio 20 (6-20) Glucose Level 199 mg/dL (70-99) Calcium Level 9.1 mg/dL (8.5-10.1) Total Bilirubin 0.6 mg/dL (0.2-1.0) Aspartate Amino Transf (AST/SGOT) 16 U/L (15-37) Alanine Aminotransferase (ALT/SGPT) 20 U/L (14-59) Alkaline Phosphatase 100 U/L (46-116) Troponin I Quantitative 0.037 ng/mL (0.000-0.055) RH-Qqh-F-Type Natriuretic Peptide 67933 pg/mL (0-124) Total Protein 6.0 g/dL (6.4-8.2) Albumin 3.1 g/dL (3.4-5.0) Albumin/Globulin Ratio 1.1 (1.0-1.7) Urine Collection Type Void Urine Color Yellow Urine Clarity Cloudy Urine pH 5.0 Urine Specific [place] 1.020 Urine Protein 100 mg/dL (NEG-TRACE) Urine Glucose (UA) Negative mg/dL (NEG) Urine Ketones (Stick) Negative mg/dL (NEG) Urine Blood Small (NEG) Urine Nitrite Negative (NEG) Urine Bilirubin Small (NEG) Urine Urobilinogen Dipstick 0.2 mg/dL (0.2 mg/dL) Urine Leukocyte Esterase Large (NEG) Urine RBC Occ /HPF (0-2) Urine WBC >40 /HPF (0-4) Urine Squamous Epithelial Cells Few /LPF Urine Bacteria Many /HPF (0-FEW) Urine Hyaline Casts Few /HPF Urine Mucus Slight /LPF Glucose (Fingerstick) 179 mg/dL (70-99) Test 12/27/16 23:20 12/28/16 06:00 12/28/16 16:48 Troponin I Quantitative 0.041 ng/mL (0.000-0.055) 0.052 ng/mL (0.000-0.055) White Blood Count 7.8 x10^3/uL (4.0-11.0) Red Blood Count 4.11 x10^6/uL (3.50-5.40) Hemoglobin 10.5 g/dL (12.0-15.5) Hematocrit 33.9 % (36.0-47.0) Mean Corpuscular Volume 83 fL (79-100) Mean Corpuscular Hemoglobin 26 pg (25-35) Mean Corpuscular Hemoglobin Concent 31 g/dL (31-37) Red Cell Distribution Width 16.3 % (11.5-14.5) Platelet Count 321 x10^3/uL (140-400) Neutrophils (%) (Auto) 69 % (31-73) Lymphocytes (%) (Auto) 19 % (24-48) Monocytes (%) (Auto) 8 % (0-9) Eosinophils (%) (Auto) 3 % (0-3) Basophils (%) (Auto) 1 % (0-3) Neutrophils # (Auto) 5.4 x10^3uL (1.8-7.7) Lymphocytes # (Auto) 1.5 x10^3/uL (1.0-4.8) Monocytes # (Auto) 0.6 x10^3/uL (0.0-1.1) Eosinophils # (Auto) 0.2 x10^3/uL (0.0-0.7) Basophils # (Auto) 0.1 x10^3/uL (0.0-0.2) Sodium Level 142 mmol/L (136-145) Potassium Level 5.3 mmol/L (3.5-5.1) Chloride Level 109 mmol/L (98-107) Carbon Dioxide Level 21 mmol/L (21-32) Anion Gap 12 (6-14) Blood Urea Nitrogen 47 mg/dL (7-20) Creatinine 2.1 mg/dL (0.6-1.0) Estimated GFR (Cockcroft-Gault) 23.0 Glucose Level 115 mg/dL (70-99) Calcium Level 9.3 mg/dL (8.5-10.1) Thyroid Stimulating Hormone (TSH) 2.975 uIU/mL (0.358-3.74) Glucose (Fingerstick) 206 mg/dL (70-99) Laboratory Tests Test 12/27/16 20:58 12/27/16 22:00 12/27/16 23:20 12/28/16 06:00 Glucose (Fingerstick) 179 mg/dL (70-99) Potassium Level 5.1 mmol/L (3.5-5.1) 5.3 mmol/L (3.5-5.1) Troponin I Quantitative 0.041 ng/mL (0.000-0.055) 0.052 ng/mL (0.000-0.055) White Blood Count 7.8 x10^3/uL (4.0-11.0) Red Blood Count 4.11 x10^6/uL (3.50-5.40) Hemoglobin 10.5 g/dL (12.0-15.5) Hematocrit 33.9 % (36.0-47.0) Mean Corpuscular Volume 83 fL (79-100) Mean Corpuscular Hemoglobin 26 pg (25-35) Mean Corpuscular Hemoglobin Concent 31 g/dL (31-37) Red Cell Distribution Width 16.3 % (11.5-14.5) Platelet Count 321 x10^3/uL (140-400) Neutrophils (%) (Auto) 69 % (31-73) Lymphocytes (%) (Auto) 19 % (24-48) Monocytes (%) (Auto) 8 % (0-9) Eosinophils (%) (Auto) 3 % (0-3) Basophils (%) (Auto) 1 % (0-3) Neutrophils # (Auto) 5.4 x10^3uL (1.8-7.7) Lymphocytes # (Auto) 1.5 x10^3/uL (1.0-4.8) Monocytes # (Auto) 0.6 x10^3/uL (0.0-1.1) Eosinophils # (Auto) 0.2 x10^3/uL (0.0-0.7) Basophils # (Auto) 0.1 x10^3/uL (0.0-0.2) Sodium Level 142 mmol/L (136-145) Chloride Level 109 mmol/L (98-107) Carbon Dioxide Level 21 mmol/L (21-32) Anion Gap 12 (6-14) Blood Urea Nitrogen 47 mg/dL (7-20) Creatinine 2.1 mg/dL (0.6-1.0) Estimated GFR (Cockcroft-Gault) 23.0 Glucose Level 115 mg/dL (70-99) Calcium Level 9.3 mg/dL (8.5-10.1) Thyroid Stimulating Hormone (TSH) 2.975 uIU/mL (0.358-3.74) Test 12/28/16 16:48 Glucose (Fingerstick) 206 mg/dL (70-99) Images Images Chest x-ray with cardiomegaly no pulmonary edema. VQ scan negative. VTE Prophylaxis Ordered VTE Prophylaxis Devices: Yes VTE Pharmacological Prophylaxi: Yes Assessment/Plan Assessment/Plan Assessment Acute diastolic congestive heart failure. Acute on chronic renal failure. Acute respiratory failure. Hyperkalemia Mild protein malnutrition Morbid obesity Type 2 diabetes Hypertension History of tobacco abuse COPD Osteoarthritis Plan Proceed with cardiology and nephrology consultation. Proceed with supportive care oxygen support as needed and diuresis. JUAN JOSÉ JARQUIN MD Dec 28, 2016 18:02
[2016-12-28] MEDS: ATORVASTATIN CALCIUM 40 MG TABLET. PO SCH (21:41)
[2016-12-28] MEDS: ENOXAPARIN 30 MG/0.3 ML SYRINGE. SQ SCH (21:45)
[2016-12-28 22:30] LABS: ALBUMIN 3.2 g/dL (3.4-5.0); CALCIUM 9.9 mg/dL (8.5-10.1); CREATININE 2.2 mg/dL (0.6-1.0); GFR 21.8; TOTAL BILIRUBIN 0.4 mg/dL (0.2-1.0); TOTAL PROTEIN 6.4 g/dL (6.4-8.2)
[2016-12-29] MEDS: METOPROLOL TART IMMED RELEASE 25 MG TABLET. PO SCH ×4 (00:02→21:15)
[2016-12-29 03:42] VITALS: BP 104/65
[2016-12-29 05:30] LABS: CALCIUM 9.7 mg/dL (8.5-10.1); CREATININE 2.2 mg/dL (0.6-1.0); GFR 21.8; POTASSIUM 4.9 mmol/L (3.5-5.1)
[2016-12-29] MEDS: FUROSEMIDE 40 MG/4 ML VIAL. IVP SCH ×2 (05:52→18:40)
[2016-12-29 05:55] LABS: HEMATOCRIT 37.6 % (36.0-47.0); HEMOGLOBIN 11.5 g/dL (12.0-15.5); RED BLOOD COUNT 4.5 x10^6/uL (3.50-5.40); RED CELL DISTRIBUTION WIDTH 16.5 % (11.5-14.5); WHITE BLOOD COUNT 8.8 x10^3/uL (4.0-11.0)
[2016-12-29 07:00] VITALS: BP 113/71
[2016-12-29] MEDS: INSULIN ASPART 300 UNITS/3 ML INSULN.PEN SQ SCH ×4 (07:30→21:00)
[2016-12-29] MEDS: ASPIRIN ENTERIC COATED 325 MG TABLET.DR. PO SCH (08:57)
--- NOTE | 2016-12-29 10:21 | PDOC ---
EZEQUIEL KELLY [employer] 12/29/16 1021: CARDIO Progress Notes Date and Time Date of Service 12/29/2016 Time of Evaluation 0940 Subjective Subjective: No Chest Pain, No shortness of breath, No Palpitations, No Dizziness, Other (no orthopnea, PND) Vitals Vitals Vital Signs Date Time Temp Pulse Resp B/P (MAP) Pulse Ox O2 Delivery O2 Flow Rate FiO2 12/29/16 08:57 106 113/71 12/29/16 07:00 98.0 18 95 Room Air 98.0 Weight Weight [ ] Input and Output Intake and Output Intake and Output 12/29/16 07:00 Intake Total 700 ml Output Total 3950 ml Balance -3250 ml Intake Oral 700 ml Output Urine Total 3950 ml Laboratory Labs Laboratory Tests Test 12/28/16 10:36 12/28/16 16:48 12/28/16 20:27 12/28/16 22:00 Glucose (Fingerstick) 164 mg/dL (70-99) 206 mg/dL (70-99) 132 mg/dL (70-99) Sodium Level 144 mmol/L (136-145) Potassium Level 5.0 mmol/L (3.5-5.1) Chloride Level 109 mmol/L (98-107) Carbon Dioxide Level 26 mmol/L (21-32) Anion Gap 9 (6-14) Blood Urea Nitrogen 42 mg/dL (7-20) Creatinine 2.2 mg/dL (0.6-1.0) Estimated GFR (Cockcroft-Gault) 21.8 BUN/Creatinine Ratio 19 (6-20) Glucose Level 89 mg/dL (70-99) Calcium Level 9.9 mg/dL (8.5-10.1) Total Bilirubin 0.4 mg/dL (0.2-1.0) Aspartate Amino Transf (AST/SGOT) 15 U/L (15-37) Alanine Aminotransferase (ALT/SGPT) 18 U/L (14-59) Alkaline Phosphatase 101 U/L (46-116) Total Protein 6.4 g/dL (6.4-8.2) Albumin 3.2 g/dL (3.4-5.0) Albumin/Globulin Ratio 1.0 (1.0-1.7) Test 12/29/16 02:30 White Blood Count 8.8 x10^3/uL (4.0-11.0) Red Blood Count 4.50 x10^6/uL (3.50-5.40) Hemoglobin 11.5 g/dL (12.0-15.5) Hematocrit 37.6 % (36.0-47.0) Mean Corpuscular Volume 84 fL (79-100) Mean Corpuscular Hemoglobin 26 pg (25-35) Mean Corpuscular Hemoglobin Concent 31 g/dL (31-37) Red Cell Distribution Width 16.5 % (11.5-14.5) Platelet Count 392 x10^3/uL (140-400) Sodium Level 145 mmol/L (136-145) Potassium Level 4.9 mmol/L (3.5-5.1) Chloride Level 107 mmol/L (98-107) Carbon Dioxide Level 26 mmol/L (21-32) Anion Gap 12 (6-14) Blood Urea Nitrogen 42 mg/dL (7-20) Creatinine 2.2 mg/dL (0.6-1.0) Estimated GFR (Cockcroft-Gault) 21.8 Glucose Level 54 mg/dL (70-99) Calcium Level 9.7 mg/dL (8.5-10.1) Microbiology Micro Microbiology 12/27/16 Urine Culture - Preliminary, Resulted 12/27/16 Urine Culture Result 1 (RODDY) - Preliminary, Resulted Physical Exam HEENT: Neck Supple W Full Motion Chest: Symmetric Heart: RRR, murmurs (3/6 systolic murmur to LLS border) Extremities: No Calf Tenderness, Other (4+ bilateral LE pitting edema) Neurology: alert, oriented, follow commands Assessment Assessment 1. PAflutter: Noted yesterday, no further events overnight 2. Acute systolic/diastolic CHF: improved 3. Cardiomyopathy: EF 25-30% with severe global hypokinesis 4. SEVERINO: Prior Cr at 1.2, presently 2.2. 5. HTN: controlled 6. DM2/HLP Recommendations 1. Start on metoprolol 25 mg po bid. Will uptitrate per BP trend with goal HR 70s. No ACEi/ARB at this time 2. Continue IV lasix therapy 3. ECASA 325 mg for stroke prevention. Will plan for outpt event monitor and note burden and will reeval for NOAC use. 4. Renal optimization per nephrology. Will reevaluate over the weekend for possible LHC on Sunday, otherwise MPI is an option YAHAIRA SANTOS MD 12/29/16 4104: CARDIO Progress Notes Plan Plan Patient seen and examined. Agree with above nurse practitioner note. No acute events overnight. Patient reports feeling that her breathing is improved. On examination she still has 2+ pitting edema. Acute kidney injury persists. Continue medical therapy as noted addition of Metoprolol. Will follow along. Plan for cath on january 01 if Cr stable Thanks. EZEQUIEL KELLY APRN Dec 29, 2016 10:21 YAHAIRA SANTOS MD Dec 29, 2016 18:44
[2016-12-29 11:00] VITALS: BP 108/58
--- NOTE | 2016-12-29 12:34 | PDOC ---
Renal-Progress Notes Subjective Notes Notes LESS SOB History of Present Illness Hx of present illness BETTER Vitals Vitals Vital Signs Date Time Temp Pulse Resp B/P (MAP) Pulse Ox O2 Delivery O2 Flow Rate FiO2 12/29/16 11:00 98.1 107 18 108/58 (75) 94 Room Air 98.1 Weight Weight [ ] I.O. Intake and Output Intake and Output 12/29/16 07:00 Intake Total 700 ml Output Total 3950 ml Balance -3250 ml Intake Oral 700 ml Output Urine Total 3950 ml Labs Labs Laboratory Tests Test 12/28/16 16:48 12/28/16 20:27 12/28/16 22:00 12/29/16 02:30 Glucose (Fingerstick) 206 mg/dL (70-99) 132 mg/dL (70-99) Sodium Level 144 mmol/L (136-145) 145 mmol/L (136-145) Potassium Level 5.0 mmol/L (3.5-5.1) 4.9 mmol/L (3.5-5.1) Chloride Level 109 mmol/L (98-107) 107 mmol/L (98-107) Carbon Dioxide Level 26 mmol/L (21-32) 26 mmol/L (21-32) Anion Gap 9 (6-14) 12 (6-14) Blood Urea Nitrogen 42 mg/dL (7-20) 42 mg/dL (7-20) Creatinine 2.2 mg/dL (0.6-1.0) 2.2 mg/dL (0.6-1.0) Estimated GFR (Cockcroft-Gault) 21.8 21.8 BUN/Creatinine Ratio 19 (6-20) Glucose Level 89 mg/dL (70-99) 54 mg/dL (70-99) Calcium Level 9.9 mg/dL (8.5-10.1) 9.7 mg/dL (8.5-10.1) Total Bilirubin 0.4 mg/dL (0.2-1.0) Aspartate Amino Transf (AST/SGOT) 15 U/L (15-37) Alanine Aminotransferase (ALT/SGPT) 18 U/L (14-59) Alkaline Phosphatase 101 U/L (46-116) Total Protein 6.4 g/dL (6.4-8.2) Albumin 3.2 g/dL (3.4-5.0) Albumin/Globulin Ratio 1.0 (1.0-1.7) White Blood Count 8.8 x10^3/uL (4.0-11.0) Red Blood Count 4.50 x10^6/uL (3.50-5.40) Hemoglobin 11.5 g/dL (12.0-15.5) Hematocrit 37.6 % (36.0-47.0) Mean Corpuscular Volume 84 fL (79-100) Mean Corpuscular Hemoglobin 26 pg (25-35) Mean Corpuscular Hemoglobin Concent 31 g/dL (31-37) Red Cell Distribution Width 16.5 % (11.5-14.5) Platelet Count 392 x10^3/uL (140-400) Test 12/29/16 07:49 12/29/16 12:03 Glucose (Fingerstick) 139 mg/dL (70-99) 222 mg/dL (70-99) Micro Micro Microbiology 12/27/16 Urine Culture - Preliminary, Resulted 12/27/16 Urine Culture Result 1 (RODDY) - Preliminary, Resulted Review of Systems Constitutional: yes: alert, oriented Ears/Nose/Throat: Yes: no symptom reported Eyes: Yes: no symptom reported Pulmonary: Yes dyspnea Cardiovascular: Yes no symptom reported, Yes edema Gastrointestional: Yes: constipation Musculoskeletal: Yes: muscle stiffness Skin: Yes no symptom reported Psychiatric/Neurological: Yes: no symptom reported Physical Exam General Appearance: no apparent distress Respiratory: decreased breath sounds Heart: S1S2 Abdomen: soft, bowel sounds present Genitourinary: bladder flat Extremities: edema Neurology: alert, oriented Musculoskeletal: Other (lumbar stenosis) Assessment Assessment IMP CHF EDEMA DM II HTN PROB STAGE 3 CKD - CR STABLE AT ABOUT 2.0 PLAN CONT WITH IV LASIX 24 URINE STUDY PENDING LABS IN AM UPDATED FAMILY KEVEN COE MD Dec 29, 2016 12:34
--- NOTE | 2016-12-29 12:46 | PDOC ---
PROGRESS NOTES Subjective Subjective Patient feeling better with less shortness of breath. Case discussed with nurse practitioner. Echo verbally reported to be ejection fraction of 30%. Plans for further cardiac workup including cardiac catheter will be completed once renal status is stable. 24 urine collection in progress at this time. PT and OT modalities in progress at this time. Patient's intermittent episodes of atrial fibrillation have resolved at this time. Objective Objective Vital Signs Date Time Temp Pulse Resp B/P (MAP) Pulse Ox O2 Delivery O2 Flow Rate FiO2 12/29/16 11:00 98.1 107 18 108/58 (75) 94 Room Air 98.1 Intake and Output 12/29/16 07:00 Intake Total 700 ml Output Total 3950 ml Balance -3250 ml Intake Oral 700 ml Output Urine Total 3950 ml Physical Exam Abdomen: Normal bowel sounds Heart: Regular rate Extremities: Other (3+ pitting edema) General: Alert Lungs: Clear to auscultation Assessment Assessment Problems Medical Problems: (1) Acute renal failure Status: Acute (2) Congestive heart failure Status: Acute (3) Hyperkalemia Status: Acute (4) Peripheral edema Status: Acute (5) Urinary tract infection Status: Acute Acute diastolic congestive heart failure. Acute on chronic renal failure. Acute respiratory failure. Hyperkalemia Mild protein malnutrition Morbid obesity Type 2 diabetes Hypertension History of tobacco abuse COPD Osteoarthritis Plan Plan of Care Continue cardiac eval. Continue diuresis. Continue renal evaluation. Cardiac catheter on Sunday if stable. Continue PT and OT modalities. Comment Review of Relevant I have reviewed the following items tessa (where applicable) has been applied. Labs Laboratory Tests Test 12/27/16 14:50 12/27/16 16:22 12/27/16 20:58 12/27/16 22:00 White Blood Count 9.0 x10^3/uL (4.0-11.0) Red Blood Count 4.20 x10^6/uL (3.50-5.40) Hemoglobin 10.8 g/dL (12.0-15.5) Hematocrit 35.4 % (36.0-47.0) Mean Corpuscular Volume 84 fL (79-100) Mean Corpuscular Hemoglobin 26 pg (25-35) Mean Corpuscular Hemoglobin Concent 31 g/dL (31-37) Red Cell Distribution Width 15.9 % (11.5-14.5) Platelet Count 374 x10^3/uL (140-400) Neutrophils (%) (Auto) 81 % (31-73) Lymphocytes (%) (Auto) 12 % (24-48) Monocytes (%) (Auto) 5 % (0-9) Eosinophils (%) (Auto) 1 % (0-3) Basophils (%) (Auto) 1 % (0-3) Neutrophils # (Auto) 7.3 x10^3uL (1.8-7.7) Lymphocytes # (Auto) 1.1 x10^3/uL (1.0-4.8) Monocytes # (Auto) 0.4 x10^3/uL (0.0-1.1) Eosinophils # (Auto) 0.1 x10^3/uL (0.0-0.7) Basophils # (Auto) 0.1 x10^3/uL (0.0-0.2) Prothrombin Time 15.3 SEC (11.7-14.0) Prothromb Time International Ratio 1.3 (0.8-1.1) Activated Partial Thromboplast Time 29 SEC (24-38) Sodium Level 141 mmol/L (136-145) Potassium Level 5.9 mmol/L (3.5-5.1) 5.1 mmol/L (3.5-5.1) Chloride Level 110 mmol/L (98-107) Carbon Dioxide Level 21 mmol/L (21-32) Anion Gap 10 (6-14) Blood Urea Nitrogen 47 mg/dL (7-20) Creatinine 2.3 mg/dL (0.6-1.0) Estimated GFR (Cockcroft-Gault) 20.7 BUN/Creatinine Ratio 20 (6-20) Glucose Level 199 mg/dL (70-99) Calcium Level 9.1 mg/dL (8.5-10.1) Total Bilirubin 0.6 mg/dL (0.2-1.0) Aspartate Amino Transf (AST/SGOT) 16 U/L (15-37) Alanine Aminotransferase (ALT/SGPT) 20 U/L (14-59) Alkaline Phosphatase 100 U/L (46-116) Troponin I Quantitative 0.037 ng/mL (0.000-0.055) IZ-[id number]-Type Natriuretic Peptide 98523 pg/mL (0-124) Total Protein 6.0 g/dL (6.4-8.2) Albumin 3.1 g/dL (3.4-5.0) Albumin/Globulin Ratio 1.1 (1.0-1.7) Urine Collection Type Void Urine Color Yellow Urine Clarity Cloudy Urine pH 5.0 Urine Specific Nimitz 1.020 Urine Protein 100 mg/dL (NEG-TRACE) Urine Glucose (UA) Negative mg/dL (NEG) Urine Ketones (Stick) Negative mg/dL (NEG) Urine Blood Small (NEG) Urine Nitrite Negative (NEG) Urine Bilirubin Small (NEG) Urine Urobilinogen Dipstick 0.2 mg/dL (0.2 mg/dL) Urine Leukocyte Esterase Large (NEG) Urine RBC Occ /HPF (0-2) Urine WBC >40 /HPF (0-4) Urine Squamous Epithelial Cells Few /LPF Urine Bacteria Many /HPF (0-FEW) Urine Hyaline Casts Few /HPF Urine Mucus Slight /LPF Glucose (Fingerstick) 179 mg/dL (70-99) Test 12/27/16 23:20 12/28/16 06:00 12/28/16 07:51 12/28/16 10:36 Troponin I Quantitative 0.041 ng/mL (0.000-0.055) 0.052 ng/mL (0.000-0.055) White Blood Count 7.8 x10^3/uL (4.0-11.0) Red Blood Count 4.11 x10^6/uL (3.50-5.40) Hemoglobin 10.5 g/dL (12.0-15.5) Hematocrit 33.9 % (36.0-47.0) Mean Corpuscular Volume 83 fL (79-100) Mean Corpuscular Hemoglobin 26 pg (25-35) Mean Corpuscular Hemoglobin Concent 31 g/dL (31-37) Red Cell Distribution Width 16.3 % (11.5-14.5) Platelet Count 321 x10^3/uL (140-400) Neutrophils (%) (Auto) 69 % (31-73) Lymphocytes (%) (Auto) 19 % (24-48) Monocytes (%) (Auto) 8 % (0-9) Eosinophils (%) (Auto) 3 % (0-3) Basophils (%) (Auto) 1 % (0-3) Neutrophils # (Auto) 5.4 x10^3uL (1.8-7.7) Lymphocytes # (Auto) 1.5 x10^3/uL (1.0-4.8) Monocytes # (Auto) 0.6 x10^3/uL (0.0-1.1) Eosinophils # (Auto) 0.2 x10^3/uL (0.0-0.7) Basophils # (Auto) 0.1 x10^3/uL (0.0-0.2) Sodium Level 142 mmol/L (136-145) Potassium Level 5.3 mmol/L (3.5-5.1) Chloride Level 109 mmol/L (98-107) Carbon Dioxide Level 21 mmol/L (21-32) Anion Gap 12 (6-14) Blood Urea Nitrogen 47 mg/dL (7-20) Creatinine 2.1 mg/dL (0.6-1.0) Estimated GFR (Cockcroft-Gault) 23.0 Glucose Level 115 mg/dL (70-99) Calcium Level 9.3 mg/dL (8.5-10.1) Thyroid Stimulating Hormone (TSH) 2.975 uIU/mL (0.358-3.74) Glucose (Fingerstick) 129 mg/dL (70-99) 164 mg/dL (70-99) Test 12/28/16 16:48 12/28/16 20:27 12/28/16 22:00 12/29/16 02:30 Glucose (Fingerstick) 206 mg/dL (70-99) 132 mg/dL (70-99) Sodium Level 144 mmol/L (136-145) 145 mmol/L (136-145) Potassium Level 5.0 mmol/L (3.5-5.1) 4.9 mmol/L (3.5-5.1) Chloride Level 109 mmol/L (98-107) 107 mmol/L (98-107) Carbon Dioxide Level 26 mmol/L (21-32) 26 mmol/L (21-32) Anion Gap 9 (6-14) 12 (6-14) Blood Urea Nitrogen 42 mg/dL (7-20) 42 mg/dL (7-20) Creatinine 2.2 mg/dL (0.6-1.0) 2.2 mg/dL (0.6-1.0) Estimated GFR (Cockcroft-Gault) 21.8 21.8 BUN/Creatinine Ratio 19 (6-20) Glucose Level 89 mg/dL (70-99) 54 mg/dL (70-99) Calcium Level 9.9 mg/dL (8.5-10.1) 9.7 mg/dL (8.5-10.1) Total Bilirubin 0.4 mg/dL (0.2-1.0) Aspartate Amino Transf (AST/SGOT) 15 U/L (15-37) Alanine Aminotransferase (ALT/SGPT) 18 U/L (14-59) Alkaline Phosphatase 101 U/L (46-116) Total Protein 6.4 g/dL (6.4-8.2) Albumin 3.2 g/dL (3.4-5.0) Albumin/Globulin Ratio 1.0 (1.0-1.7) White Blood Count 8.8 x10^3/uL (4.0-11.0) Red Blood Count 4.50 x10^6/uL (3.50-5.40) Hemoglobin 11.5 g/dL (12.0-15.5) Hematocrit 37.6 % (36.0-47.0) Mean Corpuscular Volume 84 fL (79-100) Mean Corpuscular Hemoglobin 26 pg (25-35) Mean Corpuscular Hemoglobin Concent 31 g/dL (31-37) Red Cell Distribution Width 16.5 % (11.5-14.5) Platelet Count 392 x10^3/uL (140-400) Test 12/29/16 07:49 12/29/16 12:03 Glucose (Fingerstick) 139 mg/dL (70-99) 222 mg/dL (70-99) Laboratory Tests Test 12/28/16 16:48 12/28/16 20:27 12/28/16 22:00 12/29/16 02:30 Glucose (Fingerstick) 206 mg/dL (70-99) 132 mg/dL (70-99) Sodium Level 144 mmol/L (136-145) 145 mmol/L (136-145) Potassium Level 5.0 mmol/L (3.5-5.1) 4.9 mmol/L (3.5-5.1) Chloride Level 109 mmol/L (98-107) 107 mmol/L (98-107) Carbon Dioxide Level 26 mmol/L (21-32) 26 mmol/L (21-32) Anion Gap 9 (6-14) 12 (6-14) Blood Urea Nitrogen 42 mg/dL (7-20) 42 mg/dL (7-20) Creatinine 2.2 mg/dL (0.6-1.0) 2.2 mg/dL (0.6-1.0) Estimated GFR (Cockcroft-Gault) 21.8 21.8 BUN/Creatinine Ratio 19 (6-20) Glucose Level 89 mg/dL (70-99) 54 mg/dL (70-99) Calcium Level 9.9 mg/dL (8.5-10.1) 9.7 mg/dL (8.5-10.1) Total Bilirubin 0.4 mg/dL (0.2-1.0) Aspartate Amino Transf (AST/SGOT) 15 U/L (15-37) Alanine Aminotransferase (ALT/SGPT) 18 U/L (14-59) Alkaline Phosphatase 101 U/L (46-116) Total Protein 6.4 g/dL (6.4-8.2) Albumin 3.2 g/dL (3.4-5.0) Albumin/Globulin Ratio 1.0 (1.0-1.7) White Blood Count 8.8 x10^3/uL (4.0-11.0) Red Blood Count 4.50 x10^6/uL (3.50-5.40) Hemoglobin 11.5 g/dL (12.0-15.5) Hematocrit 37.6 % (36.0-47.0) Mean Corpuscular Volume 84 fL (79-100) Mean Corpuscular Hemoglobin 26 pg (25-35) Mean Corpuscular Hemoglobin Concent 31 g/dL (31-37) Red Cell Distribution Width 16.5 % (11.5-14.5) Platelet Count 392 x10^3/uL (140-400) Test 12/29/16 07:49 12/29/16 12:03 Glucose (Fingerstick) 139 mg/dL (70-99) 222 mg/dL (70-99) Microbiology 12/27/16 Urine Culture - Preliminary, Resulted 12/27/16 Urine Culture Result 1 (RODDY) - Preliminary, Resulted Medications Current Medications Furosemide (Lasix) 20 mg 1X ONCE IVP Last administered on 12/27/16 17:02; Start 12/27/16 at 17:15; Stop 12/27/16 at 17:16; Status DC Ceftriaxone Sodium 50 ml @ 100 mls/hr 1X ONCE IV Last administered on 20:37; Start 12/27/16 at 17:30; Stop 12/27/16 at 17:59; Status DC Ondansetron HCl (Zofran) 4 mg PRN Q8HRS PRN IV NAUSEA/VOMITING; Start 12/27/16 at 17:30; Stop 12/28/16 at 17:29; Status DC Morphine Sulfate 2 mg PRN Q2HR PRN IV PAIN; Start 12/27/16 at 17:30; Stop 12/28 at 17:29; Status DC Acetaminophen (Tylenol) 650 mg PRN Q4HRS PRN PO FEVER; Start 12/27/16 at 17:30 ; Stop 12/28/16 at 17:29; Status DC Nitroglycerin (Nitrostat) 0.4 mg PRN Q5MIN PRN SL CHEST PAIN; Start 12/27/16 at 17:30; Stop 12/28/16 at 17:29; Status DC Furosemide (Lasix) 20 mg 1X ONCE IVP ; Start 12/27/16 at 17:30; Stop 12/27/16 at 17:31; Status DC Digoxin (Lanoxin) 500 mcg 1X ONCE IV Last administered on 12/27/16 22:27; Start 12/27/16 at 18:45; Stop 12/27/16 at 18:46; Status DC Furosemide (Lasix) 20 mg 1X ONCE IVP Last administered on 12/27/16 20:36; Start 12/27/16 at 18:45; Stop 12/27/16 at 18:47; Status DC Furosemide (Lasix) 40 mg Q12H IVP Last administered on 12/29/16 05:52; Start 12/28/16 at 06:00 Atorvastatin Calcium (Lipitor) 40 mg HS PO Last administered on 12/28/16 21:41 ; Start 12/27/16 at 22:15 Insulin Aspart (NovoLOG) 0-12 UNITS QIDACHS SQ Last administered on 12/28/16 17:53; Start 12/27/16 at 22:15 Enoxaparin Sodium (Lovenox 30mg Syringe) 30 mg Q24H SQ Last administered on 21:45; Start 12/27/16 at 22:30 Metoprolol Tartrate (Lopressor) 25 mg BID PO Last administered on 12/29/16 08: 57; Start 12/28/16 at 11:30 Aspirin (Ecotrin) 325 mg DAILYWBKFT PO Last administered on 12/29/16 08:57; Start 12/28/16 at 13:00 Active Scripts Active Hydrocodone-Apap 5-325 (Hydrocodone Bit/Acetaminophen) 1 Each Tablet 1 Tab PO PRN Q6HRS PRN Reported Vitamin D2 (Ergocalciferol (Vitamin D2)) 50,000 Unit Capsule 50,000 Unit PO WEEKLY Metformin Hcl 1,000 Mg Tablet 1,000 Mg PO DAILY Atorvastatin Calcium 40 Mg Tablet 40 Mg PO DAILY Glimepiride 4 Mg Tablet 8 Mg PO DAILY Lisinopril-Hctz 10-12.5 Mg Tab (Lisinopril/Hydrochlorothiazide) 1 Each Tablet 1 Each PO DAILY Hydrocodone-Apap 5-325 (Hydrocodone Bit/Acetaminophen) 1 Each Tablet 1 Each PO Q4HRS PRN Vitals/I & O Vital Sign - Last 24 Hours 12/28/16 12/28/16 12/28/16 12/28/16 14:39 16:34 19:23 20:00 Temp 97.9 97.4 97.9 97.4 Pulse 87 87 76 Resp 19 16 B/P (MAP) 115/64 (81) 115/64 93/51 (65) Pulse Ox 96 95 O2 Delivery Room Air Room Air Room Air 12/28/16 12/28/16 12/29/16 12/29/16 21:38 22:28 00:20 03:42 Temp 97.8 98.1 97.8 98.1 Pulse 114 82 108 Resp 16 16 B/P (MAP) 94/54 (67) 113/63 (80) 97/57 104/65 (78) Pulse Ox 94 94 O2 Delivery Room Air Room Air 12/29/16 12/29/16 12/29/16 12/29/16 07:00 08:00 08:57 11:00 Temp 98.0 98.1 98.0 98.1 Pulse 106 106 107 Resp 18 18 B/P (MAP) 113/71 (85) 113/71 108/58 (75) Pulse Ox 95 94 O2 Delivery Room Air Room Air Room Air Intake and Output 12/28/16 12/28/16 12/29/16 15:00 23:00 07:00 Intake Total 700 ml 0 ml Output Total 1350 ml 300 ml 2300 ml Balance -1350 ml 400 ml -2300 ml JUAN JOSÉ JARQUIN MD Dec 29, 2016 12:46
[2016-12-29 15:00] VITALS: BP 91/53
[2016-12-29 19:38] VITALS: BP 116/63
[2016-12-29] MEDS: CIPROFLOXACIN HCL 250 MG TABLET. PO SCH (21:15)
[2016-12-29] MEDS: ATORVASTATIN CALCIUM 40 MG TABLET. PO SCH (21:15)
[2016-12-29] MEDS: ENOXAPARIN 30 MG/0.3 ML SYRINGE. SQ SCH (22:46)
[2016-12-29 23:14] VITALS: BP 97/55
[2016-12-30 03:45] VITALS: BP 104/61
[2016-12-30] MEDS: FUROSEMIDE 40 MG/4 ML VIAL. IVP SCH ×2 (05:45→17:31)
[2016-12-30 06:10] LABS: CALCIUM 9.4 mg/dL (8.5-10.1); CREATININE 1.9 mg/dL (0.6-1.0); GFR 25.8; MAGNESIUM 1.5 mg/dL (1.8-2.4); POTASSIUM 4.3 mmol/L (3.5-5.1)
[2016-12-30 07:00] VITALS: BP 112/67
[2016-12-30] MEDS: ASPIRIN ENTERIC COATED 325 MG TABLET.DR. PO SCH (08:48)
[2016-12-30] MEDS: METOPROLOL TART IMMED RELEASE 25 MG TABLET. PO SCH ×2 (08:49→22:15)
[2016-12-30] MEDS: INSULIN ASPART 300 UNITS/3 ML INSULN.PEN SQ SCH (08:52)
--- NOTE | 2016-12-30 10:06 | PDOC ---
SUBJECTIVE Subjective Pt states that she is doing better. Breathing has improved, swelling in legs has improved. Pain with insulin injections, wondering if she can stop getting these. OBJECTIVE Vital Signs Vital Signs Date Time Temp Pulse Resp B/P (MAP) Pulse Ox O2 Delivery O2 Flow Rate FiO2 12/30/16 08:49 87 112/67 12/30/16 07:00 97.7 87 16 112/67 (82) 97 Room Air 97.7 12/30/16 03:45 97.1 79 21 104/61 (75) 98 Room Air 97.1 12/29/16 23:14 97.4 69 19 97/55 (69) 100 Room Air 97.4 12/29/16 21:15 113 116/63 12/29/16 19:50 Room Air 12/29/16 19:38 97.8 113 18 116/63 (80) 99 Room Air 97.8 12/29/16 15:00 97.6 111 18 91/53 (66) 95 Room Air 97.6 12/29/16 11:00 98.1 107 18 108/58 (75) 94 Room Air 98.1 I & O Intake and Output 12/30/16 07:00 Intake Total 875 ml Output Total 4000 ml Balance -3125 ml Intake Oral 875 ml Output Urine Total 4000 ml PHYSICAL EXAM Physical Exam GEN: NAD, AOx3 HEENT: EOMI, no scleral icterus/injection Cardiac: thought rhythm sounded irregular but tele monitor is normal, no M/R/G Lungs: CTAB, regular breathing rate and effort Abdomen: Normal bowel sounds Extremities: 2+ pitting edema bilaterally Neuro: CN2-12 GI ASSESSMENT/PLAN Assessment/Plan Pt is a 76yo CF admitted with acute CHF 1)Acute combined LV diastolic and systolic CHF and RV systolic failure- now compensated. Cardiology following and planning on heart catheterization on Sunday. Edema improving, pt receiving Lasix 40mg IV BID, good UOP. 2)Acute on chronic renal failure- Cr improving. Essentially normal kidney U/S. Renal following. 3)Acute respiratory failure- resolved 4)Hyperkalemia- resolved 5)Mild protein malnutrition 6)Morbid obesity 7)Type 2 diabetes- pt not receiving large amounts of insulin and injections are bothering her. HbA1C pending. Will stop insulin and resume decreased dose of pt's Glimepiride of 4mg currently. Continue to hold pt's Metformin. 8)Hypertension- pt currently receiving Metoprolol and Lasix. 9)History of tobacco abuse 10)COPD 11)Osteoarthritis 12)Paroxysmal atrial flutter- pt receiving Metoprolol 25mg BID 13)UTI- pt being treated with Ciprofloxacin 500mg QHS 14)HLD- pt continued on Atorvastatin 40mg QHS 15)Anemia- mild. No active bleeding, CTM Problems: COMMENT Lab Laboratory Tests Test 12/29/16 12:03 12/29/16 15:05 12/29/16 17:01 12/29/16 20:47 Glucose (Fingerstick) 222 mg/dL (70-99) 186 mg/dL (70-99) 155 mg/dL (70-99) 211 mg/dL (70-99) Test 12/30/16 05:00 12/30/16 07:31 Sodium Level 143 mmol/L (136-145) Potassium Level 4.3 mmol/L (3.5-5.1) Chloride Level 104 mmol/L (98-107) Carbon Dioxide Level 31 mmol/L (21-32) Anion Gap 8 (6-14) Blood Urea Nitrogen 34 mg/dL (7-20) Creatinine 1.9 mg/dL (0.6-1.0) Estimated GFR (Cockcroft-Gault) 25.8 Glucose Level 166 mg/dL (70-99) Calcium Level 9.4 mg/dL (8.5-10.1) Magnesium Level 1.5 mg/dL (1.8-2.4) Glucose (Fingerstick) 172 mg/dL (70-99) CANDICE SPENCER MD Dec 30, 2016 10:06
[2016-12-30 11:00] VITALS: BP 101/57
--- NOTE | 2016-12-30 11:50 | PDOC ---
PROGRESS NOTES Subjective Subjective The patient is feeling better today. Objective Objective Vital Signs Date Time Temp Pulse Resp B/P (MAP) Pulse Ox O2 Delivery O2 Flow Rate FiO2 12/30/16 08:49 87 112/67 12/30/16 07:50 Room Air 12/30/16 07:00 97.7 16 97 97.7 Intake and Output 12/30/16 07:00 Intake Total 875 ml Output Total 4000 ml Balance -3125 ml Intake Oral 875 ml Output Urine Total 4000 ml Physical Exam Abdomen: Normal bowel sounds Heart: Regular rate General: mild distress Lungs: Other (mildly decreased breath sounds) Assessment Assessment Problems Medical Problems: (1) Acute renal failure Status: Acute (2) Congestive heart failure Status: Acute (3) Hyperkalemia Status: Acute (4) Peripheral edema Status: Acute (5) Urinary tract infection Status: Acute 1. PAflutter: Noted yesterday, no further events overnight. Continue present treatment. 2. Acute systolic/diastolic CHF: improved 3. Cardiomyopathy: EF 25-30% with severe global hypokinesis. Continue medical treatment. 4. SEVERINO: Todays level has improved to 1.9. Continuing to monitor.presently 2.2. 5. HTN: controlled 6. DM2/HLD 7. Catheterization on January 01 as outlined in the previous day's note if creatinine level continues to improve. Comment Review of Relevant I have reviewed the following items tessa (where applicable) has been applied. Labs Laboratory Tests Test 12/28/16 16:48 12/28/16 20:27 12/28/16 22:00 12/29/16 02:30 Glucose (Fingerstick) 206 mg/dL (70-99) 132 mg/dL (70-99) Sodium Level 144 mmol/L (136-145) 145 mmol/L (136-145) Potassium Level 5.0 mmol/L (3.5-5.1) 4.9 mmol/L (3.5-5.1) Chloride Level 109 mmol/L (98-107) 107 mmol/L (98-107) Carbon Dioxide Level 26 mmol/L (21-32) 26 mmol/L (21-32) Anion Gap 9 (6-14) 12 (6-14) Blood Urea Nitrogen 42 mg/dL (7-20) 42 mg/dL (7-20) Creatinine 2.2 mg/dL (0.6-1.0) 2.2 mg/dL (0.6-1.0) Estimated GFR (Cockcroft-Gault) 21.8 21.8 BUN/Creatinine Ratio 19 (6-20) Glucose Level 89 mg/dL (70-99) 54 mg/dL (70-99) Calcium Level 9.9 mg/dL (8.5-10.1) 9.7 mg/dL (8.5-10.1) Total Bilirubin 0.4 mg/dL (0.2-1.0) Aspartate Amino Transf (AST/SGOT) 15 U/L (15-37) Alanine Aminotransferase (ALT/SGPT) 18 U/L (14-59) Alkaline Phosphatase 101 U/L (46-116) Total Protein 6.4 g/dL (6.4-8.2) Albumin 3.2 g/dL (3.4-5.0) Albumin/Globulin Ratio 1.0 (1.0-1.7) White Blood Count 8.8 x10^3/uL (4.0-11.0) Red Blood Count 4.50 x10^6/uL (3.50-5.40) Hemoglobin 11.5 g/dL (12.0-15.5) Hematocrit 37.6 % (36.0-47.0) Mean Corpuscular Volume 84 fL (79-100) Mean Corpuscular Hemoglobin 26 pg (25-35) Mean Corpuscular Hemoglobin Concent 31 g/dL (31-37) Red Cell Distribution Width 16.5 % (11.5-14.5) Platelet Count 392 x10^3/uL (140-400) Test 12/29/16 07:49 12/29/16 12:03 12/29/16 15:05 12/29/16 17:01 Glucose (Fingerstick) 139 mg/dL (70-99) 222 mg/dL (70-99) 186 mg/dL (70-99) 155 mg/dL (70-99) Test 12/29/16 20:47 12/30/16 05:00 12/30/16 07:31 Glucose (Fingerstick) 211 mg/dL (70-99) 172 mg/dL (70-99) Sodium Level 143 mmol/L (136-145) Potassium Level 4.3 mmol/L (3.5-5.1) Chloride Level 104 mmol/L (98-107) Carbon Dioxide Level 31 mmol/L (21-32) Anion Gap 8 (6-14) Blood Urea Nitrogen 34 mg/dL (7-20) Creatinine 1.9 mg/dL (0.6-1.0) Estimated GFR (Cockcroft-Gault) 25.8 Glucose Level 166 mg/dL (70-99) Calcium Level 9.4 mg/dL (8.5-10.1) Magnesium Level 1.5 mg/dL (1.8-2.4) Laboratory Tests Test 12/29/16 12:03 12/29/16 15:05 12/29/16 17:01 12/29/16 20:47 Glucose (Fingerstick) 222 mg/dL (70-99) 186 mg/dL (70-99) 155 mg/dL (70-99) 211 mg/dL (70-99) Test 12/30/16 05:00 12/30/16 07:31 Sodium Level 143 mmol/L (136-145) Potassium Level 4.3 mmol/L (3.5-5.1) Chloride Level 104 mmol/L (98-107) Carbon Dioxide Level 31 mmol/L (21-32) Anion Gap 8 (6-14) Blood Urea Nitrogen 34 mg/dL (7-20) Creatinine 1.9 mg/dL (0.6-1.0) Estimated GFR (Cockcroft-Gault) 25.8 Glucose Level 166 mg/dL (70-99) Calcium Level 9.4 mg/dL (8.5-10.1) Magnesium Level 1.5 mg/dL (1.8-2.4) Glucose (Fingerstick) 172 mg/dL (70-99) Microbiology 12/27/16 Urine Culture - Final, Complete 12/27/16 Urine Culture Result 1 (RODDY) - Final, Complete 12/27/16 Antimicrobic Susceptibility - Final, Complete Medications Current Medications Furosemide (Lasix) 20 mg 1X ONCE IVP Last administered on 12/27/16 17:02; Start 12/27/16 at 17:15; Stop 12/27/16 at 17:16; Status DC Ceftriaxone Sodium 50 ml @ 100 mls/hr 1X ONCE IV Last administered on 20:37; Start 12/27/16 at 17:30; Stop 12/27/16 at 17:59; Status DC Ondansetron HCl (Zofran) 4 mg PRN Q8HRS PRN IV NAUSEA/VOMITING; Start 12/27/16 at 17:30; Stop 12/28/16 at 17:29; Status DC Morphine Sulfate 2 mg PRN Q2HR PRN IV PAIN; Start 12/27/16 at 17:30; Stop 12/28 at 17:29; Status DC Acetaminophen (Tylenol) 650 mg PRN Q4HRS PRN PO FEVER; Start 12/27/16 at 17:30 ; Stop 12/28/16 at 17:29; Status DC Nitroglycerin (Nitrostat) 0.4 mg PRN Q5MIN PRN SL CHEST PAIN; Start 12/27/16 at 17:30; Stop 12/28/16 at 17:29; Status DC Furosemide (Lasix) 20 mg 1X ONCE IVP ; Start 12/27/16 at 17:30; Stop 12/27/16 at 17:31; Status DC Digoxin (Lanoxin) 500 mcg 1X ONCE IV Last administered on 12/27/16 22:27; Start 12/27/16 at 18:45; Stop 12/27/16 at 18:46; Status DC Furosemide (Lasix) 20 mg 1X ONCE IVP Last administered on 12/27/16 20:36; Start 12/27/16 at 18:45; Stop 12/27/16 at 18:47; Status DC Furosemide (Lasix) 40 mg Q12H IVP Last administered on 12/30/16 05:45; Start at 06:00 Atorvastatin Calcium (Lipitor) 40 mg HS PO Last administered on 12/29/16 21:15 ; Start 12/27/16 at 22:15 Insulin Aspart (NovoLOG) 0-12 UNITS QIDACHS SQ Last administered on 12/30/16 08 :52; Start 12/27/16 at 22:15; Stop 12/30/16 at 09:56; Status DC Enoxaparin Sodium (Lovenox 30mg Syringe) 30 mg Q24H SQ Last administered on 22:46; Start 12/27/16 at 22:30 Metoprolol Tartrate (Lopressor) 25 mg BID PO Last administered on 12/30/16 08: 49; Start 12/28/16 at 11:30 Aspirin (Ecotrin) 325 mg DAILYWBKFT PO Last administered on 12/30/16 08:48; Start 12/28/16 at 13:00 Ciprofloxacin (Cipro) 500 mg QHS PO Last administered on 12/29/16 21:15; Start 12/29/16 at 21:00 Glimepiride (Amaryl) 4 mg DAILY08 PO ; Start 12/31/16 at 08:00 Active Scripts Active Hydrocodone-Apap 5-325 (Hydrocodone Bit/Acetaminophen) 1 Each Tablet 1 Tab PO PRN Q6HRS PRN Reported Vitamin D2 (Ergocalciferol (Vitamin D2)) 50,000 Unit Capsule 50,000 Unit PO WEEKLY Metformin Hcl 1,000 Mg Tablet 1,000 Mg PO DAILY Atorvastatin Calcium 40 Mg Tablet 40 Mg PO DAILY Glimepiride 4 Mg Tablet 8 Mg PO DAILY Lisinopril-Hctz 10-12.5 Mg Tab (Lisinopril/Hydrochlorothiazide) 1 Each Tablet 1 Each PO DAILY Hydrocodone-Apap 5-325 (Hydrocodone Bit/Acetaminophen) 1 Each Tablet 1 Each PO Q4HRS PRN Vitals/I & O Vital Sign - Last 24 Hours 12/29/16 12/29/16 12/29/16 12/29/16 15:00 19:38 19:50 21:15 Temp 97.6 97.8 97.6 97.8 Pulse 111 113 113 Resp 18 18 B/P (MAP) 91/53 (66) 116/63 (80) 116/63 Pulse Ox 95 99 O2 Delivery Room Air Room Air Room Air 12/29/16 12/30/16 12/30/16 12/30/16 23:14 03:45 07:00 07:50 Temp 97.4 97.1 97.7 97.4 97.1 97.7 Pulse 69 79 87 Resp 19 21 16 B/P (MAP) 97/55 (69) 104/61 (75) 112/67 (82) Pulse Ox 100 98 97 O2 Delivery Room Air Room Air Room Air Room Air 12/30/16 08:49 Pulse 87 B/P (MAP) 112/67 Intake and Output 612/29/16 12/30/16 15:00 23:00 07:00 Intake Total 575 ml 300 ml Output Total 2400 ml 1600 ml Balance -1825 ml -1300 ml JULIA ARNOLD MD Dec 30, 2016 11:50
[2016-12-30 13:17] LABS: TOTAL SERUM CREATININE 2.02 mg/dL (0.57-1.00); TOTAL URINE CREATININE 18.5 mg/dL (Not Estab.)
[2016-12-30 15:00] VITALS: BP 105/59
[2016-12-30 19:40] VITALS: BP 99/54
[2016-12-30] MEDS: ATORVASTATIN CALCIUM 40 MG TABLET. PO SCH (22:10)
[2016-12-30] MEDS: CIPROFLOXACIN HCL 250 MG TABLET. PO SCH (22:10)
[2016-12-30] MEDS: ENOXAPARIN 30 MG/0.3 ML SYRINGE. SQ SCH (22:11)
[2016-12-30 23:46] VITALS: BP 97/56
[2016-12-31 03:50] VITALS: BP 106/60
[2016-12-31 05:58] LABS: CALCIUM 9.5 mg/dL (8.5-10.1); CREATININE 1.8 mg/dL (0.6-1.0); GFR 27.5; POTASSIUM 3.9 mmol/L (3.5-5.1)
[2016-12-31] MEDS: FUROSEMIDE 40 MG/4 ML VIAL. IVP SCH (06:33)
[2016-12-31 07:00] VITALS: BP 95/54
[2016-12-31] MEDS: ASPIRIN ENTERIC COATED 325 MG TABLET.DR. PO SCH (08:43)
[2016-12-31] MEDS: GLIMEPIRIDE 2 MG TABLET. PO SCH (08:43)
[2016-12-31] MEDS: METOPROLOL TART IMMED RELEASE 25 MG TABLET. PO SCH ×2 (09:00→20:40)
--- NOTE | 2016-12-31 10:35 | PDOC ---
SUBJECTIVE Subjective Pt states that she is feeling very well this morning. Had a run of Vtach earlier this morning, but pt did not have any symptoms. Pt says that she feels the swelling in her legs is better. OBJECTIVE Vital Signs Vital Signs Date Time Temp Pulse Resp B/P (MAP) Pulse Ox O2 Delivery O2 Flow Rate FiO2 12/31/16 07:00 97.7 106 16 95/54 (68) 94 Room Air 97.7 12/31/16 03:50 97.5 101 18 106/60 (75) 96 Room Air 97.5 12/30/16 23:46 97.8 84 22 97/56 (70) 97 Room Air 97.8 12/30/16 22:15 86 104/59 12/30/16 20:00 Room Air 12/30/16 19:40 98.4 104 22 99/54 (69) 98 Room Air 98.4 12/30/16 15:00 97.8 104 16 105/59 (74) 96 Room Air 97.8 12/30/16 11:00 97.6 106 16 101/57 (72) 94 Room Air 97.6 I & O Intake and Output 12/31/16 07:00 Intake Total 800 ml Output Total 2800 ml Balance -2000 ml Intake Oral 800 ml Output Urine Total 2800 ml # Bowel Movements 2 PHYSICAL EXAM Physical Exam GEN: NAD, AOx3 HEENT: EOMI, no scleral icterus/injection Cardiac: RRR, no M/R/G Lungs: CTAB, regular breathing rate and effort Abdomen: Normal bowel sounds Extremities: 2+ pitting edema bilaterally Neuro: CN2-12 GI ASSESSMENT/PLAN Assessment/Plan Pt is a 76yo CF admitted with acute CHF 1)Acute combined LV diastolic and systolic CHF and RV systolic failure- now compensated. Cardiology following and planning on heart catheterization on Sunday. Edema improving, pt receiving Lasix 40mg IV BID, good UOP. 2)Acute on chronic renal failure- Cr improving. Essentially normal kidney U/S. Renal following. 3)Acute respiratory failure- resolved 4)Hyperkalemia- resolved 5)Mild protein malnutrition 6)Morbid obesity 7)Type 2 diabetes- HbA1C this admission is 7.7. DC'd fingersticks and insulin, but discussed with pt that they will need to be resumed tomorrow when she goes to get her surgeries. Resumed pt on decreased dose of Glimepiride 4mg which she ended up not getting yesterday. May need to increase. Holding pt's Metformin due to SEVERINO. 8)Hypertension- pt hypotensive. Metoprolol being held, still receiving Lasix. 9)History of tobacco abuse 10)COPD 11)Osteoarthritis 12)Paroxysmal atrial flutter- pt receiving Metoprolol 25mg BID 13)UTI- pt being treated with Ciprofloxacin 500mg QHS 14)HLD- pt continued on Atorvastatin 40mg QHS 15)Anemia- mild. No active bleeding, CTM 16)Hypernatremia- mild, CTM 17)Hypomagnesemia- will start replacement Problems: COMMENT Lab Laboratory Tests Test 12/31/16 05:00 12/31/16 07:24 Sodium Level 146 mmol/L (136-145) Potassium Level 3.9 mmol/L (3.5-5.1) Chloride Level 102 mmol/L (98-107) Carbon Dioxide Level 37 mmol/L (21-32) Anion Gap 7 (6-14) Blood Urea Nitrogen 30 mg/dL (7-20) Creatinine 1.8 mg/dL (0.6-1.0) Estimated GFR (Cockcroft-Gault) 27.5 Glucose Level 185 mg/dL (70-99) Calcium Level 9.5 mg/dL (8.5-10.1) Glucose (Fingerstick) 181 mg/dL (70-99) CANDICE SPENCER MD Dec 31, 2016 10:35
[2016-12-31 11:00] VITALS: BP 104/61
[2016-12-31] MEDS: MAGNESIUM CHLORIDE ER 64 MG TABLET.ER PO SCH ×2 (11:35)
--- NOTE | 2016-12-31 14:24 | PDOC ---
PROGRESS NOTES Subjective Subjective The patient continues to feel better. Objective Objective Vital Signs Date Time Temp Pulse Resp B/P (MAP) Pulse Ox O2 Delivery O2 Flow Rate FiO2 12/31/16 11:00 97.6 86 16 104/61 (75) 94 Room Air 97.6 Intake and Output 12/31/16 07:00 Intake Total 800 ml Output Total 2800 ml Balance -2000 ml Intake Oral 800 ml Output Urine Total 2800 ml # Bowel Movements 2 Physical Exam Abdomen: Normal bowel sounds Heart: Regular rate General: No acute distress Lungs: Clear to auscultation Assessment Assessment Problems Medical Problems: (1) Acute renal failure Status: Acute (2) Congestive heart failure Status: Acute (3) Hyperkalemia Status: Acute (4) Peripheral edema Status: Acute (5) Urinary tract infection Status: Acute 1. PAflutter: Noted 2 days ago, no further events. Continue present treatment. 2. Acute systolic/diastolic CHF: compensated 3. Cardiomyopathy: EF 25-30% with severe global hypokinesis. Continue medical treatment. 4. SEVERINO: Todays level has improved to 1.8. 5. HTN: controlled 6. DM2/HLD 7. Catheterization on January 01 as outlined in the previous note if creatinine level continues to improve. Discussed with the patient. Comment Review of Relevant I have reviewed the following items tessa (where applicable) has been applied. Labs Laboratory Tests Test 12/29/16 15:05 12/29/16 17:01 12/29/16 20:47 12/30/16 05:00 Glucose (Fingerstick) 186 mg/dL (70-99) 155 mg/dL (70-99) 211 mg/dL (70-99) Sodium Level 143 mmol/L (136-145) Potassium Level 4.3 mmol/L (3.5-5.1) Chloride Level 104 mmol/L (98-107) Carbon Dioxide Level 31 mmol/L (21-32) Anion Gap 8 (6-14) Blood Urea Nitrogen 34 mg/dL (7-20) Creatinine 1.9 mg/dL (0.6-1.0) Estimated GFR (Cockcroft-Gault) 25.8 Glucose Level 166 mg/dL (70-99) Hemoglobin A1c 7.7 % (4.8-5.6) Calcium Level 9.4 mg/dL (8.5-10.1) Magnesium Level 1.5 mg/dL (1.8-2.4) Test 12/30/16 07:31 12/31/16 05:00 12/31/16 07:24 Glucose (Fingerstick) 172 mg/dL (70-99) 181 mg/dL (70-99) Sodium Level 146 mmol/L (136-145) Potassium Level 3.9 mmol/L (3.5-5.1) Chloride Level 102 mmol/L (98-107) Carbon Dioxide Level 37 mmol/L (21-32) Anion Gap 7 (6-14) Blood Urea Nitrogen 30 mg/dL (7-20) Creatinine 1.8 mg/dL (0.6-1.0) Estimated GFR (Cockcroft-Gault) 27.5 Glucose Level 185 mg/dL (70-99) Calcium Level 9.5 mg/dL (8.5-10.1) Laboratory Tests Test 12/31/16 05:00 12/31/16 07:24 Sodium Level 146 mmol/L (136-145) Potassium Level 3.9 mmol/L (3.5-5.1) Chloride Level 102 mmol/L (98-107) Carbon Dioxide Level 37 mmol/L (21-32) Anion Gap 7 (6-14) Blood Urea Nitrogen 30 mg/dL (7-20) Creatinine 1.8 mg/dL (0.6-1.0) Estimated GFR (Cockcroft-Gault) 27.5 Glucose Level 185 mg/dL (70-99) Calcium Level 9.5 mg/dL (8.5-10.1) Glucose (Fingerstick) 181 mg/dL (70-99) Microbiology 12/27/16 Urine Culture - Final, Complete 12/27/16 Urine Culture Result 1 (RODDY) - Final, Complete 12/27/16 Antimicrobic Susceptibility - Final, Complete Medications Current Medications Furosemide (Lasix) 20 mg 1X ONCE IVP Last administered on 12/27/16 17:02; Start 12/27/16 at 17:15; Stop 12/27/16 at 17:16; Status DC Ceftriaxone Sodium 50 ml @ 100 mls/hr 1X ONCE IV Last administered on 20:37; Start 12/27/16 at 17:30; Stop 12/27/16 at 17:59; Status DC Ondansetron HCl (Zofran) 4 mg PRN Q8HRS PRN IV NAUSEA/VOMITING; Start 12/27/16 at 17:30; Stop 12/28/16 at 17:29; Status DC Morphine Sulfate 2 mg PRN Q2HR PRN IV PAIN; Start 12/27/16 at 17:30; Stop 12/28 at 17:29; Status DC Acetaminophen (Tylenol) 650 mg PRN Q4HRS PRN PO FEVER; Start 12/27/16 at 17:30 ; Stop 12/28/16 at 17:29; Status DC Nitroglycerin (Nitrostat) 0.4 mg PRN Q5MIN PRN SL CHEST PAIN; Start 12/27/16 at 17:30; Stop 12/28/16 at 17:29; Status DC Furosemide (Lasix) 20 mg 1X ONCE IVP ; Start 12/27/16 at 17:30; Stop 12/27/16 at 17:31; Status DC Digoxin (Lanoxin) 500 mcg 1X ONCE IV Last administered on 12/27/16 22:27; Start 12/27/16 at 18:45; Stop 12/27/16 at 18:46; Status DC Furosemide (Lasix) 20 mg 1X ONCE IVP Last administered on 12/27/16 20:36; Start 12/27/16 at 18:45; Stop 12/27/16 at 18:47; Status DC Furosemide (Lasix) 40 mg Q12H IVP Last administered on 12/31/16 06:33; Start at 06:00 Atorvastatin Calcium (Lipitor) 40 mg HS PO Last administered on 12/30/16 22:10 ; Start 12/27/16 at 22:15 Insulin Aspart (NovoLOG) 0-12 UNITS QIDACHS SQ Last administered on 12/30/16 08 :52; Start 12/27/16 at 22:15; Stop 12/30/16 at 09:56; Status DC Enoxaparin Sodium (Lovenox 30mg Syringe) 30 mg Q24H SQ Last administered on 12/30 22:11; Start 12/27/16 at 22:30 Metoprolol Tartrate (Lopressor) 25 mg BID PO Last administered on 12/30/16 22: 15; Start 12/28/16 at 11:30 Aspirin (Ecotrin) 325 mg DAILYWBKFT PO Last administered on 12/31/16 08:43; Start 12/28/16 at 13:00 Ciprofloxacin (Cipro) 500 mg QHS PO Last administered on 12/30/16 22:10; Start 12/29/16 at 21:00 Glimepiride (Amaryl) 4 mg DAILY08 PO Last administered on 12/31/16 08:43; Start 12/31/16 at 08:00 Magnesium Chloride (Mag Delay) 64 mg DAILY PO Last administered on 12/31/16 11: 35; Start 12/31/16 at 11:00 Active Scripts Active Hydrocodone-Apap 5-325 (Hydrocodone Bit/Acetaminophen) 1 Each Tablet 1 Tab PO PRN Q6HRS PRN Reported Vitamin D2 (Ergocalciferol (Vitamin D2)) 50,000 Unit Capsule 50,000 Unit PO WEEKLY Metformin Hcl 1,000 Mg Tablet 1,000 Mg PO DAILY Atorvastatin Calcium 40 Mg Tablet 40 Mg PO DAILY Glimepiride 4 Mg Tablet 8 Mg PO DAILY Lisinopril-Hctz 10-12.5 Mg Tab (Lisinopril/Hydrochlorothiazide) 1 Each Tablet 1 Each PO DAILY Hydrocodone-Apap 5-325 (Hydrocodone Bit/Acetaminophen) 1 Each Tablet 1 Each PO Q4HRS PRN Vitals/I & O Vital Sign - Last 24 Hours 12/30/16 12/30/16 12/30/16 12/30/16 15:00 19:40 20:00 22:15 Temp 97.8 98.4 97.8 98.4 Pulse 104 104 86 Resp 16 22 B/P (MAP) 105/59 (74) 99/54 (69) 104/59 Pulse Ox 96 98 O2 Delivery Room Air Room Air Room Air 12/30/16 12/31/16 12/31/16 12/31/16 23:46 03:50 07:00 07:50 Temp 97.8 97.5 97.7 97.8 97.5 97.7 Pulse 84 101 106 Resp 22 18 16 B/P (MAP) 97/56 (70) 106/60 (75) 95/54 (68) Pulse Ox 97 96 94 O2 Delivery Room Air Room Air Room Air Room Air 12/31/16 11:00 Temp 97.6 97.6 Pulse 86 Resp 16 B/P (MAP) 104/61 (75) Pulse Ox 94 O2 Delivery Room Air Intake and Output 12/30/16 12/30/16 12/31/16 15:00 23:00 07:00 Intake Total 650 ml 150 ml Output Total 1200 ml 200 ml 1400 ml Balance -1200 ml 450 ml -1250 ml JULIA ARNOLD MD Dec 31, 2016 14:24
[2016-12-31 14:55] VITALS: BP 110/59
[2016-12-31 19:15] VITALS: BP 109/62
[2016-12-31] MEDS ORDERED: DEXTROSE 50% 25 GM / 50ML DISP.SYRIN. IV PRN (19:30)
[2016-12-31] MEDS: ATORVASTATIN CALCIUM 40 MG TABLET. PO SCH (20:39)
[2016-12-31] MEDS: CIPROFLOXACIN HCL 250 MG TABLET. PO SCH (20:40)
[2016-12-31] MEDS: ENOXAPARIN 30 MG/0.3 ML SYRINGE. SQ SCH (21:19)
[2016-12-31] MEDS ORDERED: IV NORMAL SALINE 1000ML BAG 1,000 ML IV SCH (22:00)
[2016-12-31 23:00] VITALS: BP 102/61
--- NOTE | 2016-12-31 23:56 | PDOC ---
Provider Note Provider Note RENAL F/U : LY S : More alert. No active CP, SOA or new c/o O : VSS BP better/stable Alert. Neck : Supple Lings : Decreased bases. Non labored. CVS : RRR Abd : Portly. No masses. Stable edema/trace. Neuro ; Alert. Labs reviewed. A/P : ARF/ATN HTN w CKD CKD IV/V CHF CATH planned. Cr clearance( measured ) only 25-30 ml/min. d/w Dr. Severino Hold off CATH unless emergent. Better hydration. Asymptomatic for now. Labs. Overall improved. Supportive care. Viry Modi M.D. VIRY MODI MD Dec 31, 2016 23:56
[2017-01-01 03:30] VITALS: BP 107/54
[2017-01-01 07:00] VITALS: BP 105/63
[2017-01-01] MEDS ORDERED: INSULIN ASPART 300 UNITS/3 ML INSULN.PEN SQ SCH (08:00)
[2017-01-01] MEDS: GLIMEPIRIDE 2 MG TABLET. PO SCH (08:22)
[2017-01-01] MEDS: MAGNESIUM CHLORIDE ER 64 MG TABLET.ER PO SCH ×2 (08:23)
[2017-01-01] MEDS: ASPIRIN ENTERIC COATED 325 MG TABLET.DR. PO SCH (08:23)
[2017-01-01] MEDS: METOPROLOL TART IMMED RELEASE 25 MG TABLET. PO SCH (08:23)
[2017-01-01] MEDS ORDERED: CIPR250T30 PO (08:37)
[2017-01-01] MEDS ORDERED: ASPI-630 PO (08:37)
[2017-01-01] MEDS ORDERED: SITA50TA PO (08:37)
[2017-01-01] MEDS ORDERED: METO25TA4 PO (08:37)
[2017-01-01] MEDS ORDERED: Magnesium Chloride Er PO (08:37)
[2017-01-01 09:31] LABS: CALCIUM 9.1 mg/dL (8.5-10.1); CREATININE 1.8 mg/dL (0.6-1.0); GFR 27.5; MAGNESIUM 1.7 mg/dL (1.8-2.4); POTASSIUM 3.7 mmol/L (3.5-5.1)
[2017-01-01 11:00] VITALS: BP 102/60
--- NOTE | 2017-01-01 12:17 | PDOC3 ---
Discharge Summary* Date of Admission: Dec 27, 2016 Date of Discharge: Jan 01, 2017 Admitting Diagnosis Problems Medical Problems: (1) Acute renal failure Status: Acute (2) Congestive heart failure Status: Acute (3) Hyperkalemia Status: Acute (4) Peripheral edema Status: Acute (5) Urinary tract infection Status: Acute Problems: Final Diagnosis Problems Medical Problems: (1) Acute renal failure Status: Acute (2) Congestive heart failure Status: Acute (3) Hyperkalemia Status: Acute (4) Peripheral edema Status: Acute (5) Urinary tract infection Status: Acute Acute compliance systolic and diastolic congestive heart failure. Acute on chronic renal failure. Acute respiratory failure. Hyperkalemia Mild protein malnutrition Morbid obesity Type 2 diabetes Hypertension History of tobacco abuse COPD Osteoarthritis CONSULTS Dr. Cruz and Dr. Dunbar Brief Hospital Course Ms. Peace is a 76 old female who presented with progressive shortness of breath and weight gain. She was noted to have severe lower extremity edema and up to 30 pound weight gain over the last 2 months.. Patient was found to be in at least diastolic congestive heart failure and later had echocardiogram confirming systolic component as well. Patient had acute on chronic renal failure having increased creatinine up to 2.4 with baseline of 1.2. Patient's creatinine was 1.9 at discharge. Patient's symptoms greatly improved with over 30 pound weight loss during hospital stay. Patient's symptoms completely abated but patient continues to be debilitated requiring home health for PT and OT. Home health will also do weights 3 times a week and check blood pressures. Cardiac catheter was recommended but this will be held due to patient's renal status. Patient has no further chest pain or symptoms at this time for coronary artery disease but was found to have cardiomyopathy with ejection fraction of 30 % or less. Cardiac follow-up will continue as outpatient. Patient will follow- up in the office for evaluation of medications and continue weight and and lab follow-up. Patient's medications were adjusted and new medications were started please see MRAD for details. Disposition/Orders: D/C to Home w/ HH CONDITION AT DISCHARGE: Improved Diet: 2 gr sodium Scheduled Atorvastatin Calcium (Atorvastatin Calcium), 40 MG PO DAILY, (Reported) Ergocalciferol (Vitamin D2) (Vitamin D2), 50,000 UNIT PO WEEKLY, (Reported) Glimepiride (Glimepiride), 8 MG PO DAILY, (Reported) Lisinopril/Hydrochlorothiazide (Lisinopril-Hctz 10-12.5 Mg Tab), 1 EACH PO DAILY , (Reported) Metformin Hcl (Metformin Hcl), 1,000 MG PO DAILY, (Reported) [Magnesium Chloride Er], 64 MG PO DAILY Scheduled PRN Hydrocodone Bit/Acetaminophen (Hydrocodone-Apap 5-325 ), 1 EACH PO Q4HRS PRN for PAIN, (Reported) Hydrocodone Bit/Acetaminophen (Hydrocodone-Apap 5-325 ), 1 TAB PO PRN Q6HRS PRN for PAIN FOLLOW UP APPOINTMENT: 1 week CUSTODIAL. 2 weeks cardiology PCP [address] Reddy Time Spent Total time spent with patient 30 minutes for coordination of care, counseling, and education. JUAN JOSÉ REDDY MD Jan 01, 2017 12:17
[2017-01-01] MEDS ORDERED: FURO-68 PO (14:39)
--- NOTE | 2017-01-01 22:17 | PDOC ---
CARDIOLOGY PROGRESS NOTE SUBJECTIVE: No acute events overnight. Denies any chest pain. Persistent dyspnea but significantly improved. Wishes to go home. OBJECTIVE: Vital SIgns: Vital Signs Date Time Temp Pulse Resp B/P (MAP) Pulse Ox O2 Delivery O2 Flow Rate FiO2 01/01/17 11:00 97.7 94 102/60 (74) 94 Room Air 97.7 01/01/17 07:00 18 I & O Intake and Output 01/01/17 07:00 Intake Total 2080 ml Output Total 2500 ml Balance -420 ml Intake Oral 2080 ml Output Urine Total 2500 ml # Bowel Movements 3 Objective: Gen: A/O x 3. NAD LE edema 2+ Known RLE arterial disease. Clear lungs. Normal heart tones. No focal deficits neurologically. CURRENT MEDICATIONS: Current Medications Medications (Trade) Dose Ordered Sig/Elida Start Time Stop Time Status Last Admin Dose Admin Acetaminophen (Tylenol) 650 mg PRN Q4HRS PRN 12/27/16 17:30 12/28/16 17:29 DC Aspirin (Ecotrin) 325 mg DAILYWBKFT 12/28/16 13:00 01/01/17 18:07 DC 01/01/17 08:23 325 MG Atorvastatin Calcium (Lipitor) 40 mg HS 12/27/16 22:15 01/01/17 18:07 DC 12/31/16 20:39 40 MG Ceftriaxone Sodium 50 ml @ 100 mls/hr 1X ONCE 12/27/16 17:30 12/27/16 17:59 DC 12/27/16 20:37 100 MLS/HR Ciprofloxacin (Cipro) 500 mg QHS 12/29/16 21:00 01/01/17 18:07 DC 12/31/16 20:40 500 MG Dextrose (Dextrose 50%-Water Syringe) 12.5 gm PRN Q15MIN PRN 12/31/16 19:30 01/01/17 18:07 DC Digoxin (Lanoxin) 500 mcg 1X ONCE 12/27/16 18:45 12/27/16 18:46 DC 12/27/16 22:27 500 MCG Enoxaparin Sodium (Lovenox 30mg Syringe) 30 mg Q24H 12/27/16 22:30 01/01/17 18:07 DC 12/31/16 21:19 30 MG Furosemide (Lasix) 40 mg Q12H 12/28/16 06:00 12/31/16 14:42 DC 12/31/16 06:33 40 MG Glimepiride (Amaryl) 4 mg DAILY08 12/31/16 08:00 01/01/17 18:07 DC 01/01/17 08:22 4 MG Insulin Aspart (NovoLOG) 0-5 UNITS TIDWMEALS 01/01/17 08:00 01/01/17 18:07 DC 01/01/17 08:29 3 UNITS Magnesium Chloride (Mag Delay) 64 mg DAILY 12/31/16 11:00 01/01/17 18:07 DC 01/01/17 08:23 64 MG Metoprolol Tartrate (Lopressor) 25 mg BID 12/28/16 11:30 01/01/17 18:07 DC 01/01/17 08:23 25 MG Morphine Sulfate 2 mg PRN Q2HR PRN 12/27/16 17:30 12/28/16 17:29 DC Nitroglycerin (Nitrostat) 0.4 mg PRN Q5MIN PRN 12/27/16 17:30 12/28/16 17:29 DC Ondansetron HCl (Zofran) 4 mg PRN Q8HRS PRN 12/27/16 17:30 12/28/16 17:29 DC Sodium Chloride 1,000 ml @ 50 mls/hr Q20H 12/31/16 22:00 12/31/16 22:00 DC ASSESSMENT: 1. Acute on chronic systolic and diastolic heart failure 2. SEVERINO 3. PAD Problems: PLAN: -Will send home on Lasix 40mg daily. -On office visit, will likely convert to long acting toprol. No apolinar-inh for now. -Supportive care and will follow up in 7-10 days. YAHAIRA SANTOS MD Jan 01, 2017 22:17
== END 2017-01-01 15:40 | disposition home or self-care (01) | DRG 682 ==
LOC: ER 13:51 → 2 SOUTH 16:34
PROVIDERS: ADMIT Family Medicine; ATTEND Family Medicine
DX: N17.0 Acute kidney failure with tubular necrosis (principal); J96.00 Acute respiratory failure, unspecified whether with hypoxia or hypercapnia; I50.43 Acute on chronic combined systolic (congestive) and diastolic (congestive) heart failure; E44.1 Mild protein-calorie malnutrition; I13.0 Hypertensive heart and chronic kidney disease with heart failure and stage 1 through stage 4 chronic kidney disease, or unspecified chronic kidney disease; I42.9 Cardiomyopathy, unspecified; I47.2 Ventricular tachycardia; I48.92 Unspecified atrial flutter; J44.1 Chronic obstructive pulmonary disease with (acute) exacerbation; N39.0 Urinary tract infection, site not specified; N18.4 Chronic kidney disease, stage 4 (severe); D64.9 Anemia, unspecified; Z90.49 Acquired absence of other specified parts of digestive tract; E11.22 Type 2 diabetes mellitus with diabetic chronic kidney disease; E66.01 Morbid (severe) obesity due to excess calories; E78.00 Pure hypercholesterolemia, unspecified; E78.5 Hyperlipidemia, unspecified; E87.5 Hyperkalemia; F17.210 Nicotine dependence, cigarettes, uncomplicated; I35.0 Nonrheumatic aortic (valve) stenosis; I48.91 Unspecified atrial fibrillation; E11.51 Type 2 diabetes mellitus with diabetic peripheral angiopathy without gangrene; M10.9 Gout, unspecified; M19.90 Unspecified osteoarthritis, unspecified site; M81.0 Age-related osteoporosis without current pathological fracture; Z80.1 Family history of malignant neoplasm of trachea, bronchus and lung; Z83.3 Family history of diabetes mellitus; Z79.899 Other long term (current) drug therapy; Z68.32 Body mass index [BMI] 32.0-32.9, adult
CPT/HCPCS: 36415; 71010; 76770; 78582; 80048; 80053; 81001; 82575; 82962; 83036; 83735; 83880; 84132; 84156; 84443; 84484; 85027; 85610; 85730; 87086; 87186; 93005; 93306; 96374; A9540; A9558; J0690; J1160; J1650; J1815; J1940; 97110; 97116; 97530; 97535; 99285-25

== ENCOUNTER 2018-05-11 11:56 | Emergency (ER) | payer MEDICARE ==
[~2018-05-11] VITALS: Ht 167.6 cm; Wt 93.0 kg
[~2018-05-11 11:56] MED LIST changes: +ASPI-630 PO; +CIPR250T30 PO; +FURO-68 PO; -METF-620 PO; +METF10007 PO; +METO25TA4 PO; +Magnesium Chloride Er PO; +SITA50TA PO
[2018-05-11 12:16] VITALS: BP 189/77
[2018-05-11] MEDS ORDERED: HYDROcodone/APAP 5/325MG 1 TAB TABLET PO ONE (12:45)
[2018-05-11 12:51] LABS: BILIRUBIN,URINE NEGATIVE (NEG); CLARITY,URINE CLEAR; COLOR,URINE YELLOW; NITRITE,URINE NEGATIVE (NEG); PROTEIN,URINE NEGATIVE (NEG-TRACE); UROBILINOGEN,URINE 0.2 mg/dL (0.2 mg/dL)
[2018-05-11 13:02] LABS: HYALINE CASTS, URINE MODERATE /HPF; SQUAMOUS EPITHELIAL CELL,UR FEW /LPF
[2018-05-11 13:05] LABS: BACTERIA,URINE 0 /HPF (0-FEW); WBC,URINE OCC /HPF (0-4)
--- NOTE | 2018-05-11 13:29 | RAD ---
CT lumbar spine without contrast 05/11/2018 Clinical indication: Low back pain for 3 days with no known injury. COMPARISON: MRI lumbar spine 11/06/2013 TECHNIQUE: Multiple CT images of the lumbar spine were obtained without contrast. *One or more of the following individualized dose reduction techniques were utilized for this examination: 1. Automated exposure control. 2. Adjustment of the mA and/or kV according to patient size. 3. Use of iterative reconstruction technique. FINDINGS: There are 5 nonrib-bearing lumbar-type vertebral bodies with the 1st considered L1. Diffuse bony demineralization. There is a mild age-indeterminate anterior superior L5 compression deformity resulting in less than 20 percent vertebral body height loss no significant bony retropulsion. Lower left for scoliosis the lumbar spine. Multilevel disc degeneration to moderate degree at L1-L2 and L2-L3 and L5-S1 with disc space narrowing, endplate sclerosis, marginal osteophyte formation and vacuum disc phenomenon, and a mild degree at T12-L1 and L4-L5. Mild bilateral renal atrophy. There is an indeterminate left adrenal gland mass measuring 3.7 x 2.8 cm series 2/image 5. Moderate aortoiliac calcified atheromatous disease. Segmental analysis: At T12-L1, concentric disc bulging and minimal facet hypertrophy without significant spinal canal or neural foraminal narrowing. At L1-L2, concentric disc bulging with superimposed central disc protrusion, and asymmetric left disc osteophyte complex with facet hypertrophy and ligamentum flavum thickening results in mild to moderate spinal canal and moderate left neural foraminal narrowing. At L2-L3, concentric disc bulging, asymmetric to the left with ligamentum flavum thickening and facet hypertrophy resulting in mild to moderate spinal canal narrowing and mild left neural foraminal narrowing. At L3-L4, broad-based posterior disc bulging and facet hypertrophy and ligamentum flavum thickening resulting in mild to moderate spinal canal narrowing. At L4-L5, concentric disc bulging and severe facet hypertrophy with ligamentum flavum thickening resulting in mild to moderate spinal canal narrowing, moderate left neural foraminal narrowing. At L5-S1, facet hypertrophy and right foraminal/extraforaminal disc ossify complex without significant spinal canal or neural foraminal narrowing. IMPRESSION: 1. Mild, age-indeterminate, L5 compression deformity without significant bony retropulsion. Clinical correlation is recommended. 2. Multilevel lumbar spondylosis and facet hypertrophy resulting in mild to moderate spinal canal narrowing L2-L3 through L4-L5. 3. Degenerative neural foraminal narrowing, greatest remarkable degree, on the left at L1-L2 and on the left at L4-L5. 4. Left adrenal mass, measuring up to, 3.7 cm, indeterminate and malignancy is not excluded. CT adrenal protocol is recommended. 5. Mild bilateral renal atrophy. Electronically signed by: Luis Manuel Huntley MD (05/11/2018 1:26 PM) [facility]
--- NOTE | 2018-05-11 13:51 | PHYS DOC ---
Past Medical History Past Medical History: Diabetes-Type II, High Cholesterol, Hypertension Additional Past Medical Histor: OSTEOPOROSIS Past Surgical History: Cholecystectomy Alcohol Use: None Drug Use: None Adult General Chief Complaint Chief Complaint: HIP PAIN HPI HPI Patient is a 78 year old female patient who presents with complaining of low back pain. Patient complaining of gradual onset of lower back pain with radiation to posterior of left lower high as a constant pain that getting worse with movement and bearing weight. Patient denies focal neuro deficit, fever and chills, urinary symptom, nausea and vomiting, chest pain and shortness of breath and abdominal pain, history of the same pain. She rated her pain 7/10 and states she did not take any pain medication at home. Review of Systems Review of Systems Constitutional: Denies fever or chills [] Eyes: Denies change in visual acuity, redness, or eye pain [] HENT: Denies nasal congestion or sore throat [] Respiratory: Denies cough or shortness of breath [] Cardiovascular: No additional information not addressed in HPI [] GI: Denies abdominal pain, nausea, vomiting, bloody stools or diarrhea [] : Denies dysuria or hematuria [] Musculoskeletal: Reports back pain and joint pain Integument: Denies rash or skin lesions [] Neurologic: Denies headache, focal weakness or sensory changes [] Endocrine: Denies polyuria or polydipsia [] All other systems were reviewed and found to be within normal limits, except as documented in this note. Current Medications Current Medications Current Medications Medications (Trade) Dose Ordered Sig/Elida Start Time Stop Time Status Last Admin Dose Admin Acetaminophen/ Hydrocodone Bitart (Lortab 5/325) 1 tab 1X ONCE 05/11/18 12:45 05/11/18 12:46 DC 05/11/18 12:44 1 TAB Allergies Allergies Allergies Coded Allergies Type Severity Reaction Last Updated Verified No Known Drug Allergies 11/05/13 No Physical Exam Physical Exam Constitutional: Well developed, well nourished, mild distress, non-toxic appearance. [] HENT: Normocephalic, atraumatic. Eyes: PERRLA, EOMI, conjunctiva normal, no discharge. [] Neck: Normal range of motion, no tenderness, supple, no stridor. [] Cardiovascular:Heart rate regular rhythm, no murmur [] Lungs & Thorax: Bilateral breath sounds clear to auscultation [] Abdomen: Bowel sounds normal, soft, no tenderness, no masses, no pulsatile masses. [] Skin: Warm, dry, no erythema, no rash. [] Back: No midline tenderness, left paraspinal spasm and painful range of motion no CVA tenderness. [] Extremities: No tenderness, no cyanosis, no clubbing, ROM intact, no edema. [] Neurologic: Alert and oriented X 3, normal motor function, normal sensory function, no focal deficits noted. [] Psychologic: Affect normal, judgement normal, mood normal. [] Current Patient Data Vital Signs Vital Signs Date Time Temp Pulse Resp B/P (MAP) Pulse Ox O2 Delivery O2 Flow Rate FiO2 05/11/18 12:44 16 99 Room Air 05/11/18 12:16 97.9 58 189/77 (114) 97.9 Lab Values Laboratory Tests Test 05/11/18 12:44 Urine Collection Type Unknown Urine Color Yellow Urine Clarity Clear Urine pH 6.0 Urine Specific [place] 1.010 Urine Protein Negative mg/dL (NEG-TRACE) Urine Glucose (UA) Negative mg/dL (NEG) Urine Ketones (Stick) Negative mg/dL (NEG) Urine Blood Negative (NEG) Urine Nitrite Negative (NEG) Urine Bilirubin Negative (NEG) Urine Urobilinogen Dipstick 0.2 mg/dL (0.2 mg/dL) Urine Leukocyte Esterase Trace (NEG) Urine RBC 1-2 /HPF (0-2) Urine WBC Occ /HPF (0-4) Urine Squamous Epithelial Cells Few /LPF Urine Bacteria 0 /HPF (0-FEW) Urine Hyaline Casts Moderate /HPF EKG EKG [] Radiology/Procedures Radiology/Procedures [facility] [address] [place], [place] [id number] IMAGING REPORT Signed PATIENT: GONZALES BAIRD ACCOUNT: [id number] : 1940 LOCATION: ER AGE: 78 SEX: F EXAM STATUS: REG ER ORD. PHYSICIAN: ROLANDA DENG MD REASON: low back pain PROCEDURE: CT LUMBAR SPINE WO CONTRAST CT lumbar spine without contrast 05/11/2018 Clinical indication: Low back pain for 3 days with no known injury. COMPARISON: MRI lumbar spine 11/06/2013 TECHNIQUE: Multiple CT images of the lumbar spine were obtained without contrast. *One or more of the following individualized dose reduction techniques were utilized for this examination: 1. Automated exposure control. 2. Adjustment of the mA and/or kV according to patient size. 3. Use of iterative reconstruction technique. FINDINGS: There are 5 nonrib-bearing lumbar-type vertebral bodies with the 1st considered L1. Diffuse bony demineralization. There is a mild age-indeterminate anterior superior L5 compression deformity resulting in less than 20 percent vertebral body height loss no significant bony retropulsion. Lower left for scoliosis the lumbar spine. Multilevel disc degeneration to moderate degree at L1-L2 and L2-L3 and L5-S1 with disc space narrowing, endplate sclerosis, marginal osteophyte formation and vacuum disc phenomenon, and a mild degree at T12-L1 and L4-L5. Mild bilateral renal atrophy. There is an indeterminate left adrenal gland mass measuring 3.7 x 2.8 cm series 2/image 5. Moderate aortoiliac calcified atheromatous disease. Segmental analysis: At T12-L1, concentric disc bulging and minimal facet hypertrophy without significant spinal canal or neural foraminal narrowing. At L1-L2, concentric disc bulging with superimposed central disc protrusion, and asymmetric left disc osteophyte complex with facet hypertrophy and ligamentum flavum thickening results in mild to moderate spinal canal and moderate left neural foraminal narrowing. At L2-L3, concentric disc bulging, asymmetric to the left with ligamentum flavum thickening and facet hypertrophy resulting in mild to moderate spinal canal narrowing and mild left neural foraminal narrowing. At L3-L4, broad-based posterior disc bulging and facet hypertrophy and ligamentum flavum thickening resulting in mild to moderate spinal canal narrowing. At L4-L5, concentric disc bulging and severe facet hypertrophy with ligamentum flavum thickening resulting in mild to moderate spinal canal narrowing, moderate left neural foraminal narrowing. At L5-S1, facet hypertrophy and right foraminal/extraforaminal disc ossify complex without significant spinal canal or neural foraminal narrowing. IMPRESSION: 1. Mild, age-indeterminate, L5 compression deformity without significant bony retropulsion. Clinical correlation is recommended. 2. Multilevel lumbar spondylosis and facet hypertrophy resulting in mild to moderate spinal canal narrowing L2-L3 through L4-L5. 3. Degenerative neural foraminal narrowing, greatest remarkable degree, on the left at L1-L2 and on the left at L4-L5. 4. Left adrenal mass, measuring up to, 3.7 cm, indeterminate and malignancy is not excluded. CT adrenal protocol is recommended. 5. Mild bilateral renal atrophy. Electronically signed by: Buck Vitale MD (05/11/2018 1:26 PM) [facility] [place] DICTATED and SIGNED BY: BUCK VITALE MD DATE: 05/11/18 1315 Course & Med Decision Making Course & Med Decision Making Pertinent Labs and Imaging studies reviewed. (See chart for details) Evaluation of patient in ER showed 78-year-old female patient with complaining of low back pain with radiation to posterior thigh for the last 3 days. UA was un[address]able. CT of lumbar spine showed old L5 compression fracture and spinal stenosis and accidental finding of 3.7 cm left abdominal mass with recommendation of more admission regarding possible malignancy. Patient informed about this result and states she wanted to follow up with her appointment with her primary care physician in 5 days and doesn't want to have more evaluation or admission at Hospital. Patient treated with Rougon in ER and felt better and prescription for Rougon was given. Dragon Disclaimer Dragon Disclaimer This electronic medical record was generated, in whole or in part, using a voice recognition dictation system. Departure Departure Impression: Primary Impression: Sciatica Additional Impressions: History of compression fracture of spine Spinal stenosis of lumbar region Left adrenal mass Disposition: 01 HOME, SELF-CARE (@5184) Condition: IMPROVED Referrals: JUAN JOSÉ JARQUIN MD (PCP) Patient Instructions: Sciatica, Spinal Stenosis Additional Instructions: Apply ice on your back Follow-up with your primary care physician as scheduled in 5 days regarding left adrenal mass Return to ER if not getting better Scripts Hydrocodone/Apap 5-325 (NORCO 5-325 TABLET) 1 Each Tablet 1 TAB PO PRN Q6HRS PRN for PAIN, #20 TAB 0 Refills Prov: ROLANDA DENG MD 05/11/18 Problem Qualifiers ROLANDA DENG MD May 11, 2018 13:51
[2018-05-11] MEDS ORDERED: HYDR-971 PO (13:53)
== END 2018-05-11 14:03 | disposition home or self-care (01) ==
LOC: ER 11:56
DX: M48.061 Spinal stenosis, lumbar region without neurogenic claudication (principal); E27.9 Disorder of adrenal gland, unspecified; M54.42 Lumbago with sciatica, left side; M79.652 Pain in left thigh; E78.00 Pure hypercholesterolemia, unspecified; I10 Essential (primary) hypertension; E11.9 Type 2 diabetes mellitus without complications; Z90.49 Acquired absence of other specified parts of digestive tract
CPT/HCPCS: 72131; 81001; 87086; 99285-25

== ENCOUNTER → 2018-06-10 | Outpatient (CLI) | payer MEDICARE ==
[2018-05-11 12:16] VITALS: BP 189/77
[~2018-06-10] MED LIST changes: -HYDR-2758 PO; +HYDR-2761 PO; +HYDR-3164 PO; +IOHEXOL 300 MG/ML 100ML VIAL. IV ONE
--- NOTE | 2018-06-10 16:59 | RAD ---
PQRS Compliance Statement: One or more of the following individualized dose reduction techniques were utilized for this examination: 1. Automated exposure control 2. Adjustment of the mA and/or kV according to patient size 3. Use of iterative reconstruction technique CT ABDOMEN WO/W CONTRAST Clinical Indication: LEFT KIDNEY MASS Comparison: CT lumbar spine without contrast, May 11, 2018. Technique: Helical CT imaging of the abdomen is performed before and after 60 cc of Omnipaque 300 IV contrast. Oral contrast not given. Postcontrast imaging occurred during corticomedullary phase, nephrographic phase, and delayed phase. Findings: There is no renal mass. The kidneys enhance symmetrically. There is cortical atrophy. Mild bilateral perinephric stranding, can be a normal variant in a patient of this age. No hydronephrosis. There is coronary artery disease. Cardiac size normal. No pericardial effusion. Calcified left hilar lymph nodes. Calcified granulomas in the left lower lobe. There is a 7 mm noncalcified nodule in the left lower lobe, image 17 of series 2. Calcified granulomas in the spleen. Gallbladder likely surgically absent. Liver, pancreas, right adrenal gland and abdominal aorta caliber are normal. Moderate atherosclerotic calcification of the distal abdominal aorta. There is a left adrenal mass measuring 3.6 x 2.9 x 3.4 cm. The mass does not appreciably enhance. Within the mass there are tiny calcifications and tiny foci of macroscopic fat. This suggests that the mass is an adrenal myelolipoma. Stomach not well distended, limiting evaluation. No dilated small bowel. Small fat-containing periumbilical hernia, incompletely imaged. There are a few diverticula of the descending colon without inflammation. No colon wall thickening is identified. Appendix is not seen. No abdominal adenopathy or free fluid. Degenerative spondylosis of the thoracolumbar spine. IMPRESSION: 1. Left adrenal mass is most suggestive of an adrenal myelolipoma. 2. No renal mass. 3. 7 mm noncalcified nodule in the left lower lobe. Recommend noncontrast CT chest follow-up in 6-12 months per Fleischner Society guidelines. Electronically signed by: Usman Watkins MD (06/10/2018 4:56 PM) [id number]
== END | disposition home or self-care (01) ==
LOC: CT 09:16
PROVIDERS: ATTEND Family Medicine
DX: E27.8 Other specified disorders of adrenal gland (principal); N26.1 Atrophy of kidney (terminal); K42.9 Umbilical hernia without obstruction or gangrene; M47.895 Other spondylosis, thoracolumbar region; I70.0 Atherosclerosis of aorta; I25.10 Atherosclerotic heart disease of native coronary artery without angina pectoris; R91.1 Solitary pulmonary nodule
CPT/HCPCS: 74170; Q9967

== ENCOUNTER 2019-04-19 17:06 | Emergency (ER) | payer MEDICARE ==
[~2019-04-19] VITALS: Ht 170.2 cm; Wt 88.5 kg
[~2019-04-19 17:06] MED LIST changes: -GLIM4TAB2 PO; +GLIM4TAB4 PO; -IOHEXOL 300 MG/ML 100ML VIAL. IV ONE; +LISI1TAB23 PO; -LISI1TAB3 PO
[2019-04-19] MEDS ORDERED: fentaNYL PF VIAL 100 MCG/2 ML VIAL IM ONE (20:30)
--- NOTE | 2019-04-19 21:16 | RAD ---
PQRS Compliance Statement: One or more of the following individualized dose reduction techniques were utilized for this examination: 1. Automated exposure control 2. Adjustment of the mA and/or kV according to patient size 3. Use of iterative reconstruction technique CT head and cervical spine without contrast 04/19/2019 8:35 PM INDICATION: Fall COMPARISON: None available TECHNIQUE: Multiple axial CT images of the head were obtained from skull base through the vertex without intravenous contrast. Multiple axial CT images of the cervical spine were obtained without intravenous contrast. Coronal and sagittal reformats are provided. FINDINGS: Head: Ventricles, sulci and basal cisterns are within normal limits. Low-attenuation in the periventricular white matter is suggestive of chronic small vessel ischemic changes. There is no hydrocephalus. Silvestre-white matter differentiation is normal. There is no acute intracranial hemorrhage. There is no mass, mass effect or midline shift. Posterior fossa is normal in appearance. Visualized portions of the orbits are normal. Paranasal sinuses are well aerated. Mastoid air cells are well aerated. Scalp and calvaria are normal. Cervical spine: There is dextroconvex scoliosis of the cervical spine. Minimal retrolisthesis of C4 on C5. Skull base is intact. Craniocervical junction is normal in appearance. Atlantoaxial articulation is normal. Vertebral body heights are maintained without evidence for acute fracture. At C3-C4, there is a central disc extrusion. There is moderate left and mild right facet arthropathy is mild uncovertebral joint disease resulting in mild to moderate spinal canal stenosis. At C4-C5 there is a posterior discussed by complex with moderate facet and mild uncovertebral joint disease without significant neuroforaminal or spinal canal stenosis. At C5-C6, there is a posterior discussed by complex with mild to moderate facet arthropathy, severe right and moderate left uncovertebral joint disease and severe right neuroforaminal stenosis with mild spinal canal stenosis. At C6-C7, there is a posterior disc osteophyte complex with mild facet arthropathy and moderate uncovertebral joint disease resulting in moderate bilateral neuroforaminal stenosis. There is no prevertebral soft tissue swelling. Thyroid gland is normal in appearance. Visualized portions of the lung apices are normal without evidence for suspicious pulmonary nodule or infiltrate. IMPRESSION: 1. No acute intracranial hemorrhage. Low-attenuation in the periventricular white matter is suggestive of chronic small vessel ischemic changes. 2. No acute fracture of the cervical spine. Dextroconvex scoliosis with moderate cervical spondylosis. Electronically signed by: Flavia Ward MD (04/19/2019 9:13 PM) [facility]
[2019-04-19] MEDS ORDERED: HYDR-3164 PO (21:46)
--- NOTE | 2019-04-19 21:47 | PHYS DOC ---
Past Medical History Past Medical History: Diabetes-Type II, High Cholesterol, Hypertension Additional Past Medical Histor: OSTEOPOROSIS Past Surgical History: Cholecystectomy Alcohol Use: None Drug Use: None Adult General Chief Complaint Chief Complaint: MECHANICAL FALL HPI HPI Patient is a 79 year old female who presents with an injury to ribs and knee. Patient states she had an accidental fall from a standing position at this hosp [facility] while she was visiting her son and landed on her right side without injury to her head or loss of consciousness. Patient complaining of pain in right anterior lower chest chest wall and right knee. Patient denies headache, focal neuro deficit, nausea vomiting, blurred vision, shortness of breath. She rated her pain as 6/10 and does not want to have pain medication. Review of Systems Review of Systems Constitutional: Denies fever or chills [] Eyes: Denies change in visual acuity, redness, or eye pain [] HENT: Denies nasal congestion or sore throat [] Respiratory: Denies cough or shortness of breath [] Cardiovascular: No additional information not addressed in HPI [] GI: Denies abdominal pain, nausea, vomiting, bloody stools or diarrhea [] : Denies dysuria or hematuria [] Musculoskeletal: Denies back pain or joint pain [] Integument: Denies rash or skin lesions [] Neurologic: Denies headache, focal weakness or sensory changes [] Endocrine: Denies polyuria or polydipsia [] All other systems were reviewed and found to be within normal limits, except as documented in this note. Current Medications Current Medications Current Medications Medications (Trade) Dose Ordered Sig/Elida Start Time Stop Time Status Last Admin Dose Admin Fentanyl Citrate (Fentanyl 2ml Vial) 50 mcg 1X ONCE 04/19/19 20:30 04/19/19 20:31 DC 04/19/19 20:22 50 MCG Allergies Allergies Allergies Coded Allergies Type Severity Reaction Last Updated Verified No Known Drug Allergies 11/05/13 No Physical Exam Physical Exam Constitutional: Well developed, well nourished, mild distress, non-toxic appearance. [] HENT: Normocephalic, atraumatic. Eyes: PERRLA, EOMI, conjunctiva normal, no discharge. [] Neck: Normal range of motion, no tenderness, supple, no stridor. [] Cardiovascular:Heart rate regular rhythm, no murmur [] Lungs & Thorax: Bilateral breath sounds clear to auscultation , mild tenderness of anterior right lower chest wall without crepitation or subcutaneous em physema[] Abdomen: Bowel sounds normal, soft, no tenderness, no masses, no pulsatile masses. [] Skin: Warm, dry, no erythema, no rash. [] Back: No tenderness, no CVA tenderness. [] Extremities: Right knee without ecchymosis or edema or sign of injury, painful range of motion, bilateral lower extremity 2+ chronic edema Neurologic: Alert and oriented X 3, no focal deficits noted. [] Psychologic: Affect normal, judgement normal, mood normal. [] Current Patient Data Vital Signs Vital Signs Date Time Temp Pulse Resp B/P (MAP) Pulse Ox O2 Delivery O2 Flow Rate FiO2 04/19/19 22:00 72 21 96 04/19/19 20:22 Room Air 04/19/19 18:45 97.7 168/69 (102) 97.7 EKG EKG [] Radiology/Procedures Radiology/Procedures [address] [address] IMAGING REPORT Signed PATIENT: GONZALES BAIRD ACCOUNT: [id number] : 1940 LOCATION: ER AGE: 79 SEX: F EXAM STATUS: DEP ER ORD. PHYSICIAN: ROLANDA EDNG MD REASON: Injury, fall PROCEDURE: RIBS RIGHT AND PA CHEST Indication: Fall TECHNIQUE: PA chest and multiple views of the right wrist COMPARISON: None FINDINGS: Patient is rotated to the left side limiting optimal evaluation. Heart is normal in size. No pneumothorax or large pleural effusion. Lungs are grossly clear. Advanced left shoulder joint osteoarthritis. Moderate right shoulder joint osteoarthritis. No acute fracture seen of the right ribs. IMPRESSION: No acute findings. Electronically signed by: Zuhair Ortiz DO (04/20/2019 12:05 AM) [facility] DICTATED and SIGNED BY: ZUHAIR ORTIZ DO DATE: 04/20/[address] [facility] [address] [place] [address] IMAGING REPORT Signed PATIENT: GONZALES BAIRD ACCOUNT: [id number] : 1940 LOCATION: ER AGE: 79 SEX: F EXAM STATUS: DEP ER ORD. PHYSICIAN: ROLANDA DENG MD REASON: Injury, fall PROCEDURE: KNEE RIGHT 3V Indication:Fall. TECHNIQUE: 3 views of the right knee COMPARISON:None FINDINGS: No acute fracture or dislocation. Severe tricompartmental osteoarthritis. No joint effusion. IMPRESSION: As above. Electronically signed by: Zuhair Ortiz DO (04/19/2019 11:51 PM) [facility] DICTATED and SIGNED BY: ZUHAIR ORTIZ DO DATE: 04/19/[address] [facility] [address] [place] [address] IMAGING REPORT Signed PATIENT: GONZALES BAIRD ACCOUNT: [id number] : 1940 LOCATION: ER AGE: 79 SEX: F EXAM STATUS: REG ER ORD. PHYSICIAN: ROLANDA DENG MD REASON: fall PROCEDURE: CT HEAD AND CERVICAL SPINE WO PQRS Compliance Statement: One or more of the following individualized dose reduction techniques were utilized for this examination: 1. Automated exposure control 2. Adjustment of the mA and/or kV according to patient size 3. Use of iterative reconstruction technique CT head and cervical spine without contrast 04/19/2019 8:35 PM INDICATION: Fall COMPARISON: None available TECHNIQUE: Multiple axial CT images of the head were obtained from skull base through the vertex without intravenous contrast. Multiple axial CT images of the cervical spine were obtained without intravenous contrast. Coronal and sagittal reformats are provided. FINDINGS: Head: Ventricles, sulci and basal cisterns are within normal limits. Low-attenuation in the periventricular white matter is suggestive of chronic small vessel ischemic changes. There is no hydrocephalus. Silvestre-white matter differentiation is normal. There is no acute intracranial hemorrhage. There is no mass, mass effect or midline shift. Posterior fossa is normal in appearance. Visualized portions of the orbits are normal. Paranasal sinuses are well aerated. Mastoid air cells are well aerated. Scalp and calvaria are normal. Cervical spine: There is dextroconvex scoliosis of the cervical spine. Minimal retrolisthesis of C4 on C5. Skull base is intact. Craniocervical junction is normal in appearance. Atlantoaxial articulation is normal. Vertebral body heights are maintained without evidence for acute fracture. At C3-C4, there is a central disc extrusion. There is moderate left and mild right facet arthropathy is mild uncovertebral joint disease resulting in mild to moderate spinal canal stenosis. At C4-C5 there is a posterior discussed by complex with moderate facet and mild uncovertebral joint disease without significant neuroforaminal or spinal canal stenosis. At C5-C6, there is a posterior discussed by complex with mild to moderate facet arthropathy, severe right and moderate left uncovertebral joint disease and severe right neuroforaminal stenosis with mild spinal canal stenosis. At C6-C7, there is a posterior disc osteophyte complex with mild facet arthropathy and moderate uncovertebral joint disease resulting in moderate bilateral neuroforaminal stenosis. There is no prevertebral soft tissue swelling. Thyroid gland is normal in appearance. Visualized portions of the lung apices are normal without evidence for suspicious pulmonary nodule or infiltrate. IMPRESSION: 1. No acute intracranial hemorrhage. Low-attenuation in the periventricular white matter is suggestive of chronic small vessel ischemic changes. 2. No acute fracture of the cervical spine. Dextroconvex scoliosis with moderate cervical spondylosis. Electronically signed by: Gabriel Flynn MD (04/19/2019 9:13 PM) [facility] DICTATED and SIGNED BY: GABRIEL FLYNN MD DATE: 04/19/192112 Course & Med Decision Making Course & Med Decision Making Pertinent Imaging studies reviewed. (See chart for details) Evaluation of patient in ER showed 79-year-old male patient with accidental fall and injury to right chest wall and knee. Patient didn't want to have pain medication at arrival to ER but later on in for pain medication and felt better with fentanyl IM. Chest x-ray was unremarkable. Plan to discharge patient home with diagnosis of injury. Dragon Disclaimer Dragon Disclaimer This electronic medical record was generated, in whole or in part, using a voice recognition dictation system. Departure Departure Impression: Primary Impression: Chest wall injury Additional Impressions: Fall Knee sprain Disposition: 01 HOME, SELF-CARE (at 2144) Condition: IMPROVED Referrals: JUAN JOSÉ JARQUIN MD (PCP) Patient Instructions: Chest Contusion, Fall Prevention and Home Safety, Knee Sprain Additional Instructions: Apply ice on the affected area Follow-up with your primary care physician in 3-5 days Return to ER if not getting better Scripts Hydrocodone/Apap 5-325 (NORCO 5-325 TABLET) 1 Each Tablet 1 TAB PO PRN Q6HRS PRN for PAIN, #14 TAB 0 Refills Prov: ROLANDA DENG MD 04/19/19 Problem Qualifiers Primary Impression: Chest wall injury Encounter type: initial encounter Qualified Codes: S29.9XXA - Unspecified injury of thorax, initial encounter Additional Impressions: Fall Encounter type: subsequent encounter Qualified Codes: W19.XXXD - Unspecified fall, subsequent encounter Knee sprain Encounter type: initial encounter Involved ligament of knee: unspecified ligament Laterality: right Qualified Codes: S83.91XA - Sprain of unspecified site of right knee, initial encounter ROLANDA DENG MD Apr 19, 2019 21:46
[2019-04-19 22:00] VITALS: BP 167/95
--- NOTE | 2019-04-19 23:54 | RAD ---
Indication:Fall. TECHNIQUE: 3 views of the right knee COMPARISON:None FINDINGS: No acute fracture or dislocation. Severe tricompartmental osteoarthritis. No joint effusion. IMPRESSION: As above. Electronically signed by: Zuhair Ortiz DO (04/19/2019 11:51 PM) [facility]
--- NOTE | 2019-04-20 00:08 | RAD ---
Indication: Fall TECHNIQUE: PA chest and multiple views of the right wrist COMPARISON: None FINDINGS: Patient is rotated to the left side limiting optimal evaluation. Heart is normal in size. No pneumothorax or large pleural effusion. Lungs are grossly clear. Advanced left shoulder joint osteoarthritis. Moderate right shoulder joint osteoarthritis. No acute fracture seen of the right ribs. IMPRESSION: No acute findings. Electronically signed by: Zuhair Ortiz DO (04/20/2019 12:05 AM) [facility]
== END 2019-04-19 22:05 | disposition home or self-care (01) ==
LOC: ER 17:06
DX: S83.8X1A Sprain of other specified parts of right knee, initial encounter (principal); S29.8XXA Other specified injuries of thorax, initial encounter; E11.9 Type 2 diabetes mellitus without complications; E78.00 Pure hypercholesterolemia, unspecified; I10 Essential (primary) hypertension; Z90.710 Acquired absence of both cervix and uterus; W18.39XA Other fall on same level, initial encounter; Y93.89 Activity, other specified; Y92.239 Unspecified place in hospital as the place of occurrence of the external cause; Y99.8 Other external cause status
CPT/HCPCS: 70450; 71101; 72125; 73562; 96372; 99284; J3010